=== PATIENT | female | born 1960 | race Caucasian/White ===

== ENCOUNTER 2017-10-23 23:42 | Emergency (ER) | payer MEDICAID, SELFPAY ==
[2017-10-23 23:47] VITALS: BP 157/104; PULSE 78; RESP 16; TEMP 36.4; O2SAT 97; BMI 26.9
--- NOTE | 2017-10-24 | CT_ITS ---
CT abdomen pelvis wo con CLINICAL INDICATION: Epigastric and right upper quadrant pain ITS.REASON: pain ORDERING PHYSICIAN: Mehdi Hogan MD PATIENT AGE: 57 years COMPARISON: 02/07/2014 TECHNIQUE: Axial images obtained with sagittal and coronal reformats. PROCEDURE: Oral Contrast: None IV Contrast: None . FINDINGS: Lung bases are clear. The liver, spleen, adrenal glands, pancreas, kidneys, ureters, and urinary bladder have an unremarkable appearance. Gallstones are present within a mildly distended gallbladder. No obvious biliary dilatation. Probable small splenule. Stomach is mildly distended with food and/or secretions. Unremarkable appendix. No intestinal obstruction or free air. No evidence of diverticulitis. There are few diverticula within the sigmoid colon. There are some minimally prominent fluid-filled loops of small bowel in the upper abdomen which are nonspecific. No air-fluid levels are evident within the small bowel. No pelvic mass or focal inflammatory change or abnormal fluid collection. Small umbilical hernia containing fat There is grade 1 spondylitic spondylolisthesis of L5 on S1 with degenerative disc disease at L4-5 and L5-S1. IMPRESSION: 1. Cholelithiasis with mildly distended gallbladder. 2. Mild distention of the stomach and proximal small bowel which is nonspecific. Repeat exam with IV and oral contrast may be of further value centimeters persist. No obvious transition point 3. Other nonacute findings as described above
[2017-10-24 00:19] LABS: Basophils # 0.1 K/mm3 (0-0.2); Basophils % 0.5 % (0.1-2.0); Eosinophils # 0.3 K/mm3 (0.0-0.4); Eosinophils % 2.3 % (0.1-12.0); Hematocrit 43.8 % (37.0-47.0); Hemoglobin 14.7 g/dL (12.2-16.2); Lymphocytes # 3.9 K/mm3 (0.7-4.5); Lymphocytes % 29.4 K/mm3 (10-50); Mean Corpuscular HGB Conc 33.6 g/dL (31.8-35.4); Mean Corpuscular Hemoglobin 29.2 pg (27.0-31.2); Mean Corpuscular Volume 87.1 fl (81-99); Mean Platelet Volume 7.7 fl (7.4-10.4); Monocytes # 0.7 K/mm3 (0.1-1.0); Monocytes % 5.4 % (1.7-9.3); Neutrophils # 8.3 K/mm3 (1.8-7.8); Neutrophils % 62.3 % (37.0-80.0); Platelet Count 293 K/mm3 (142-424); Red Blood Count 5.03 M/mm3 (4.20-5.40); Red Cell Distribution Width 12.6 % (11.5-17.5); White Blood Count 13.3 K/mm3 (4.8-10.8)
[2017-10-24 00:48] LABS: Alanine Aminotransferase 25 U/L (12-78); Albumin Level 4.1 gm/dL (3.4-5.0); Albumin/Globulin Ratio 1.1 (1.1-1.8); Alkaline Phosphatase 64 U/L (46-116); Amylase 50 U/L (25-125); Anion Gap 10.7 mEq/L (5-15); Aspartate Amino Transferase 15 U/L (15-37); Bilirubin,Total 0.3 mg/dL (0.2-1.0); Blood Urea Nitrogen 14 mg/dL (7-18); Calcium 8.9 mg/dL (8.5-10.1); Carbon Dioxide 28 mmol/L (21.0-32.0); Chloride 103 mmol/L (98-107); Creatinine Clearance Estimated 65 mL/min (0-300); Creatinine,Serum 1.05 mg/dL (0.55-1.02); Estimated Glomerular Filt Rate 54 ml/min (>60); GFR (African American) 66 ML/MIN (>60); Globulin 3.6 gm/dl (1.3-3.2); Glucose 146 mg/dL (74-106); Lipase 137 u/L (73-393); Potassium 3.7 mmoL/L (3.5-5.1); Sodium 138 mmol/L (136-145); Total Protein,Serum 7.7 gm/dL (6.4-8.2)
[2017-10-24 01:03] LABS: CKMB Relative Index 0.7 U/L (0-4.0); Creatine Kinase 103 U/L (26-192); Creatine Kinase MB 0.7 mg/ml (0.0-3.6); Troponin I < 0.02 ng/ml (0.00-0.06)
[2017-10-24 01:13] LABS: Microscopic, Urine URINE MICROSCOPIC (MICROSCOPIC)
[2017-10-24 01:15] LABS: Appearance,Urine CLEAR (Clear); Bilirubin,Urine Negative (Negative); Blood, Urine TRACE-I (Negative); Color,Urine YELLOW (Yellow); Glucose,Urine (UA) Negative (Negative); Ketones,Urine Negative (Negative); Leukocyte Esterase,Urine 1+ (Negative); Nitrate,Urine Negative (Negative); Protein,Urine Negative (Negative); Specific Gravity, Urine 1.025 (1.005-1.030); Urobilinogen,Urine 0.2 EU/dl (0.2)
[2017-10-24 01:23] LABS: Amorphous Sediment,Urine 1+ /lpf; Bacteria,Urine 1+ /lpf; Mucus,Urine 1+ /lpf
--- NOTE | 2017-10-24 01:27 | HMH.EDNVD ---
ED Disposition Clinical Impression: Cholelithiasis Qualifiers: Cholelithiasis location: gallbladder Cholecystitis presence: without cholecystitis Biliary obstruction: without biliary obstruction Qualified Code(s): K80.20 - Calculus of gallbladder without cholecystitis without obstruction Disposition: Home, Self-Care Condition on Discharge: Good Instructions: DI for Gallstones Additional Instructions: call pcp for follow up Prescriptions: Hydrocod/Acet 5/325 mg [[place] 5/325mg tablet] 1 tab PO Q6HP PRN #7 tab PRN Reason: Moderate To Severe Pain - Critical Care Critical Care Time: No Attestation: On 10/23/17, the high probability of a clinically significant, sudden or life threatening deterioration of the following system(s) required my full and direct attention, intervention and personal management. The time I documented below is in addition to time spent performing reported procedures but includes the following listed in this critical care notation. Medical Decision Making - Medical Records Medical records reviewed: Yes: I reviewed the patient's medical records. Vital Signs: 10/23/17 23:47 10/24/17 01:51 10/24/17 02:37 Temperature 97.6 F 97.7 F Temperature Source Oral Oral Pulse Rate [Left Radial] 78 91 H 69 Respiratory Rate 16 14 12 Blood Pressure [Right Arm] 157/104 171/81 134/63 Blood Pressure Mean [Right Arm] 121 111 86 Blood Pressure Source [Right Arm] Automatic Cuff Automatic Cuff Automatic Cuff Blood Pressure Position [Right Arm] Supine Sitting Sitting 02 Sat by Pulse Oximetry 97 94 L 97 Oxygen Delivery Method Room Air Room Air Room Air - Lab Data Lab results reviewed: Yes: I reviewed the patient's lab results. Lab Results 10/24/17 00:05: WBC 13.3 H, RBC 5.03, Hgb 14.7, Hct 43.8, MCV 87.1, MCH 29.2, MCHC 33.6, RDW 12.6, Plt Count 293, MPV 7.7, Neut % (Auto) 62.3, Lymph % (Auto) 29.4, [place] % (Auto) 5.4, Eos % (Auto) 2.3, Baso % (Auto) 0.5, Neut # (Auto) 8.3 H, Lymph # (Auto) 3.9, [place] # (Auto) 0.7, Eos # (Auto) 0.3, Baso # (Auto) 0.1 10/24/17 00:05: Sodium 138, Potassium 3.7, Chloride 103, Carbon Dioxide 28, Anion Gap 10.7, BUN 14, Creatinine 1.05 H, Estimated Creat Clear 65, Estimated GFR 54 L, Est GFR ( Amer) 66, Glucose 146 H, Calcium 8.9, Total Bilirubin 0.3, AST 15, ALT 25, Alkaline Phosphatase 64, Total Protein 7.7, Albumin 4.1, Globulin 3.6 H, Albumin/Globulin Ratio 1.1, Amylase 50, Lipase 137 10/24/17 00:05: Total Creatine Kinase 103, CK-MB (CK-2) 0.7, CK-MB (CK-2) Rel Index 0.7, Troponin I < 0.02 10/24/17 01:09: Urine Color Yellow, Urine Appearance Clear, Urine pH 6.0, Ur Specific [place] 1.025, Urine Protein Negative, Urine Glucose (UA) Negative, Urine Ketones Negative, Urine Blood Trace-i, Urine Nitrate Negative, Urine Bilirubin Negative, Urine Urobilinogen 0.2, Ur Leukocyte Esterase 1+ A, Urine RBC 3-5, Urine WBC 10-20, Ur Squamous Epith Cells 5-10, Amorphous Sediment 1+, Urine Bacteria 1+, Urine Mucus 1+ Result diagrams: 10/24/17 00:05 10/24/17 00:05 Orders (Tests/Meds): ED MEDICATIONS Discontinued Medications Generic Name Dose Route Start Last Admin Trade Name Freq PRN Reason Stop Dose Admin Hydrocodone Bitart/Acetaminophen 1 tab 10/24/17 02:28 10/24/17 02:32 [place] 5/325mg Tablet PO 10/24/17 02:29 1 tab ONCE ONE Administration Butorphanol Tartrate 1 mg 10/24/17 01:40 10/24/17 01:45 Stadol 1mg/1ml Vial IV 10/24/17 01:41 1 mg ONCE ONE Administration Sodium Chloride 1,000 mls @ 999 mls/hr 10/23/17 23:45 10/24/17 00:06 Sod Chlor 0.9% 1000ml Bag IV 10/24/17 00:45 999 mls/hr .Q1H1M YASSINE Administration Ketorolac Tromethamine 30 mg 10/24/17 00:01 10/24/17 00:06 Toradol 30mg/Ml Vial IV 10/24/17 00:02 30 mg ONCE ONE Administration Ondansetron HCl 4 mg 10/23/17 23:58 10/24/17 00:06 Zofran 4mg/2ml Vial IV 10/23/17 23:59 4 mg ONCE ONE Administration Promethazine HCl 12.5 mg 10/24/17 01:41 10/24/17 01:46 Phener
--- NOTE | 2017-10-24 01:34 | ED_ITS ---
ED Disposition Clinical Impression: Cholelithiasis Qualifiers: Cholelithiasis location: gallbladder Cholecystitis presence: without cholecystitis Biliary obstruction: without biliary obstruction Qualified Code(s) : K80.20 - Calculus of gallbladder without cholecystitis without obstruction Disposition: Home, Self-Care Condition on Discharge: Good Instructions: DI for Gallstones Additional Instructions: call pcp for follow up Prescriptions: Hydrocod/Acet 5/325 mg [[place] 5/325mg tablet] 1 tab PO Q6HP PRN #7 tab PRN Reason: Moderate To Severe Pain - Critical Care Critical Care Time: No Attestation: On 10/23/17, the high probability of a clinically significant, sudden or life threatening deterioration of the following system(s) required my full and direct attention, intervention and personal management. The time I documented below is in addition to time spent performing reported procedures but includes the following listed in this critical care notation. Medical Decision Making - Medical Records Medical records reviewed: Yes: I reviewed the patient's medical records. Vital Signs: 10/23/17 23:47 10/24/17 01:51 10/24/17 02:37 Temperature 97.6 F 97.7 F Temperature Source Oral Oral Pulse Rate [Left Radial] 78 91 H 69 Respiratory Rate 16 14 12 Blood Pressure [Right Arm] 157/104 171/81 134/63 Blood Pressure Mean [Right Arm] 121 111 86 Blood Pressure Source [Right Arm] Automatic Cuff Automatic Cuff Automatic Cuff Blood Pressure Position [Right Arm] Supine Sitting Sitting 02 Sat by Pulse Oximetry 97 94 L 97 Oxygen Delivery Method Room Air Room Air Room Air - Lab Data Lab results reviewed: Yes: I reviewed the patient's lab results. Lab Results 10/24/17 00:05: WBC 13.3 H, RBC 5.03, Hgb 14.7, Hct 43.8, MCV 87.1, MCH 29.2, MCHC 33.6, RDW 12.6, Plt Count 293, MPV 7.7, Neut % (Auto) 62.3, Lymph % (Auto) 29.4, [place] % (Auto) 5.4, Eos % (Auto) 2.3, Baso % (Auto) 0.5, Neut # (Auto) 8.3 H, Lymph # (Auto) 3.9, [place] # (Auto) 0.7, Eos # (Auto) 0.3, Baso # (Auto) 0.1 10/24/17 00:05: Sodium 138, Potassium 3.7, Chloride 103, Carbon Dioxide 28, Anion Gap 10.7, BUN 14, Creatinine 1.05 H, Estimated Creat Clear 65, Estimated GFR 54 L, Est GFR ( Amer) 66, Glucose 146 H, Calcium 8.9, Total Bilirubin 0.3, AST 15, ALT 25, Alkaline Phosphatase 64, Total Protein 7.7, Albumin 4.1, Globulin 3.6 H, Albumin/Globulin Ratio 1.1, Amylase 50, Lipase 137 10/24/17 00:05: Total Creatine Kinase 103, CK-MB (CK-2) 0.7, CK-MB (CK-2) Rel Index 0.7, Troponin I < 0.02 10/24/17 01:09: Urine Color Yellow, Urine Appearance Clear, Urine pH 6.0, Ur Specific [place] 1.025, Urine Protein Negative, Urine Glucose (UA) Negative, Urine Ketones Negative, Urine Blood Trace-i, Urine Nitrate Negative, Urine Bilirubin Negative, Urine Urobilinogen 0.2, Ur Leukocyte Esterase 1+ A, Urine RBC 3-5, Urine WBC 10-20, Ur Squamous Epith Cells 5-10, Amorphous Sediment 1+, Urine Bacteria 1+, Urine Mucus 1+ Result diagrams: 10/24/17 00:05 10/24/17 00:05 Orders (Tests/Meds): ED MEDICATIONS Discontinued Medications Generic Name Dose Route Start Last Admin Trade Name Curlyq PRN Reason Stop Dose Admin Hydrocodone Bitart/Acetaminophen 1 tab 10/24/17 02:28 10/24/17 02:32 [place] 5/325mg Tablet PO 10/24/17 02:29 1 tab ONCE ONE Administration Butorphanol Tartrate 1 mg 10/24/17 01:40 10/24/17 01:45 Stadol 1mg/1ml Vial IV 10/24/17 01:41 1 mg O
[2017-10-24 01:51] VITALS: BP 171/81; PULSE 91; RESP 14; O2SAT 94
[2017-10-24 02:37] VITALS: BP 134/63; PULSE 69; RESP 12; TEMP 36.5; O2SAT 97
[2017-10-24 02:40] VITALS: BP 134/63; PULSE 69; RESP 12; TEMP 36.5; O2SAT 97
== END 2017-10-24 02:48 | disposition home or self-care (01) ==
PROVIDERS: Emergency Provider Emergency Medicine; Family Provider Internal Medicine Adolescent Medicine
DX: K80.20 Calculus of gallbladder without cholecystitis without obstruction (principal); F17.210 Nicotine dependence, cigarettes, uncomplicated
CPT/HCPCS: 74176; 80053; 81001; 82150; 82550; 82553; 83690; 84484; 85025; 87086; 93005; 93041; 96365; 96374; 96375; 99284; J0595; J2405

== ENCOUNTER 2019-01-05 03:48 | Inpatient (IN) | payer MEDICAID, SELFPAY ==
[2019-01-05] VITALS (30 sets, daily range): BP systolic 107–166; BP diastolic 55–103; PULSE 59–95; RESP 15–20; TEMP 36.3–36.8; O2SAT 7–100; BMI 29.2; BMI 29.7
--- NOTE | 2019-01-05 03:54 | XR_ITS ---
XR chest portable HISTORY: ITS.REASON: chest pain ORDERING PHYSICIAN: Bryan Pitts MD PATIENT AGE: 58 years COMPARISON: PA and lateral chest 08/06/2017 FINDINGS: The cardiomediastinal silhouette and pulmonary vascularity are within normal limits. The lungs are clear without infiltrates, suspicious nodules, or pleural effusions. No acute bony abnormalities. IMPRESSION: Negative chest, no acute finding
--- NOTE | 2019-01-05 04:04 | HMH.EDGENADL ---
ED Disposition Condition on Discharge: Serious - Critical Care Critical Care Time: Yes Total Critical Care Time: 40 Vital system(s) involved:: Circulatory Failure My critical care processes included: Assessment & monitoring of V/S, Initial and Re-exams, Data Review/Interpretation, Coordinating Care, Medication Orders and management, Documentation <Bryan Pitts - Last Filed: 01/05/19 07:55> Condition on Discharge: Serious Time of Disposition: 09:11 <Mehdi Walton - Last Filed: 01/05/19 09:22> Clinical Impression: Non-STEMI (non-ST elevated myocardial infarction), Cocaine use, Substance abuse Disposition: Still a Patient Referrals: Provider,Referral, MD [Primary Care Provider] - Attestation: On 01/05/19, the high probability of a clinically significant, sudden or life threatening deterioration of the following system(s) required my full and direct attention, intervention and personal management. The time I documented below is in addition to time spent performing reported procedures but includes the following listed in this critical care notation. Medical Decision Making - Sadiq Inquiry Pt receiving controlled substance: Yes Sadiq was queried for this patient: No Reason not queried -: Emergent pt cond-no time Risks and benefits of using a controlled substance: were not discussed with pt by me - Lab Data Result diagrams: 01/05/19 04:00 01/05/19 04:00 - Radiology Data #1 Image(s): Chest Image Reviewed: Yes I reviewed the patient's radiology image Preliminary Findings: Normal/NAD - CT Data CT Scan: Chest Time Received: 06:[address] Reviewed: Yes: I have viewed the radiologist's interpretation - Physician Consults Physician Consulted: Bharti Time: 07:50 Reason -: Cardiology Eval/Care Comment/Response: Requests nitro drip, heparin bolus and drip, Ativan. Call him back after 30 minutes. If she is not pain-free he will then take to the [facility]. Additional Consult: Danyelle Time: 08:00 Reason -: Admission Comment/Response: Agrees to admit the patient to the hospital. We discussed the patient's clinical information, including history, exam, laboratory and radiology results and ED course. Per hospital procedure, I will write temporary bridge inpatient orders on the patient. Specific orders requested by the admitting physician: Per cardiology - Reevaluation(s) Time: 04:48 <Bryan Pitts - Last Filed: 01/05/19 07:55> - Lab Data Result diagrams: 01/05/19 04:00 01/05/19 04:00 - ERENDIRA Score for Non-Stemi Age of Patient: 50-59 years old Heart Rate: 70-89 bpm Systolic Blood Pressure: 160-199 mmHg Serum Creatinine: 0.80-1.19 mg/dl CHF [place] Class: I-No CHF Other Risk Factors: Elevated Cardiac Enzymes or Biomarkers Non-Stemi Risk Score: 81 <Mehdi Walton - Last Filed: 01/05/19 09:22> Vital Signs: 01/05/19 03:49 01/05/19 03:59 01/05/19 04:50 Temperature 97.4 F L Temperature Source Oral Pulse Rate [Right Radial] 72 74 Respiratory Rate 20 18 Blood Pressure [Right Arm] 164/103 H 129/76 Blood Pressure Mean [Right Arm] 123 93 Blood Pressure Source [Right Arm] Blood Pressure Position [Right Arm] 02 Sat by Pulse Oximetry 100 100 100 Oxygen Delivery Method Nasal Cannula Oxygen Flow Rate (LPM) 2 01/05/19 05:50 01/05/19 07:48 01/05/19 08:30 Temperature Temperature Source Pulse Rate [Right Radial] 79 68 67 Respiratory Rate 18 Blood Pressure [Right Arm] 107/70 L 156/100 H 154/78 H Blood Pressure Mean [Right Arm] 82 118 103 Blood Pressure Source [Right Arm] Automatic Cuff Automatic Cuff Blood Pressure Position [Right Arm] Sitting Sitting 02 Sat by Pulse Oximetry 100 98 Oxygen Delivery Method Room Air Oxygen Flow Rate (LPM) 01/05/19 08:35 01/05/19 08:40 01/05/19 08:45 Temperature Temperature Source Pulse Rate [Right Radial] 68 63 61 Respiratory Rate Blood Pressure [Right Arm] 139/95 H 125/92 H 118/80 Blood Pressure Mean [Right Arm]
--- NOTE | 2019-01-05 04:07 | PC.NURSE ---
patient states no relief from nitro given. dr snyder notified and is at bedside for eval at this time. pt still c/o 06/05 pain.
[2019-01-05 04:15] LABS: Basophils # 0.1 K/mm3 (0-0.2); Basophils % 0.6 % (0.1-2.0); Eosinophils # 0.3 K/mm3 (0.0-0.4); Eosinophils % 2.8 % (0.1-12.0); Hematocrit 46.7 % (37.0-47.0); Hemoglobin 15.2 g/dL (12.2-16.2); Lymphocytes # 3.6 K/mm3 (0.7-4.5); Mean Corpuscular HGB Conc 32.5 g/dL (31.8-35.4); Mean Corpuscular Hemoglobin 28.5 pg (27.0-31.2); Mean Corpuscular Volume 87.8 fl (81-99); Mean Platelet Volume 7.4 fl (7.4-10.4); Monocytes # 0.6 K/mm3 (0.1-1.0); Monocytes % 6.1 % (1.7-9.3); Neutrophils # 5.7 K/mm3 (1.8-7.8); Neutrophils % 55.5 % (37.0-80.0); Platelet Count 328 K/mm3 (142-424); Red Blood Count 5.32 M/mm3 (4.20-5.40); Red Cell Distribution Width 12.8 % (11.5-17.5); White Blood Count 10.2 K/mm3 (4.8-10.8)
[2019-01-05 04:31] LABS: Anion Gap 12.8 mEq/L (5-15); Blood Urea Nitrogen 14 mg/dL (7-18); Carbon Dioxide 28 mmol/L (21.0-32.0); Chloride 103 mmol/L (98-107); Creatinine Clearance Estimated 69 mL/min (50-200); Creatinine,Serum 1.09 mg/dL (0.55-1.02); Estimated Glomerular Filt Rate 52 ml/min (>60); GFR (African American) 63 ML/MIN (>60); Glucose 158 mg/dL (74-106); Potassium 3.8 mmoL/L (3.5-5.1); Sodium 140 mmol/L (136-145); Troponin I < 0.02 ng/ml (0.00-0.06)
[2019-01-05 04:44] LABS: D-Dimer < 100 ng/mL (0-400)
--- NOTE | 2019-01-05 04:54 | CT_ITS ---
CT angio chest COMPARISON: PA and lateral chest 08/06/2017 HISTORY: Chest pain, clinical suspicion of possible aortic dissection TECHNIQUE: Multiple axial scans obtained from the thoracic inlet the hemidiaphragms after rapid injection of 100 mL of Omnipaque 350. Sagittal coronal reformats were evaluated as well. FINDINGS: There is excellent vascular opacification and is no CT evidence of pulmonary emboli. There is no evidence of aortic dissection. Cardiac size is normal and the vascularity is normal. There is minimal discoid atelectasis in the lingula and bilateral lung bases. There is no definite pneumonic infiltrate and is no pleural fluid. There are mild degenerative changes middle lower thoracic spine. IMPRESSION: No evidence of pulmonary embolism or aortic dissection from a minimal bilateral atelectasis as noted, agree the [facility] report
[2019-01-05 05:24] LABS: Amphetamine/Metha Screen,Urine Negative ng/mL (<1000); Barbiturates Screen,Urine Negative ng/mL (<200); Benzodiazepines Screen,Urine Negative ng/mL (<200); Cannabinoid Screen,Urine Positive ng/mL (<50); Cocaine Screen,Urine Positive ng/mL (<300); Methadone Screen,Urine Negative ng/mL (<300); Opiate Screen,Urine Positive ng/mL (<300); Phencyclidine Screen,Urine Negative ng/mL (<25)
--- NOTE | 2019-01-05 07:05 | PC.NURSE ---
repeat troponin drawn and to lab for resulting by alina funez rn
[2019-01-05 07:42] LABS: Troponin I 2.69 ng/ml (0.00-0.06)
--- NOTE | 2019-01-05 07:43 | PC.NURSE ---
speaking with Dr Hay
--- NOTE | 2019-01-05 07:58 | PC.NURSE ---
returned call from dr frank
--- NOTE | 2019-01-05 08:07 | PC.NURSE ---
spoke with Inge in pharmacy r/t Heparin bolus and drip dosing for pt. Stated pt would need at Heparin 4,000 units bolus and Heparin drip would be 1,000 units/hr inge stated she would enter these medications in the system
--- NOTE | 2019-01-05 08:10 | PC.NURSE ---
ER at discussing POC and test results with pt
[2019-01-05 08:20] LABS: Activated Partial Thrombo Time 25.6 seconds (23.6-34.0); INR 0.94 (0.9-1.1); Prothrombin Time 9.8 seconds (9.4-11.8)
--- NOTE | 2019-01-05 08:38 | PC.NURSE ---
verified Heparin drip dosing with Inge in pharmacy r/t order only has 20ml/hr and not the units per hour. Inge stated it is 1000 units per hour with a rate of 20ml/hr
--- NOTE | 2019-01-05 09:01 | PC.NURSE ---
glazing machine operator paging Dr. clayton
--- NOTE | 2019-01-05 09:04 | PC.NURSE ---
speaking to forrest
--- NOTE | 2019-01-05 09:04 | PC.NURSE ---
table operator paging Dr. Bassett who is on for service pts
--- NOTE | 2019-01-05 09:06 | PC.NURSE ---
DEN BURROUGHS speaking with Dr. Bassett
--- NOTE | 2019-01-05 09:11 | PC.NURSE ---
pt resting no c/o at present
--- NOTE | 2019-01-05 09:40 | PC.NURSE ---
dr frank at bedside
--- NOTE | 2019-01-05 09:43 | PC.NURSE ---
Dr. Bassett at
--- NOTE | 2019-01-05 09:51 | HMH.HP ---
*Admission Date: 01/05/19 *Chief complaint: Chest pain *History of present illness: 58 year year old female patient of Dr. Dino Eason in [place], [place], presented to [facility] ER this morning complaining of chest pain. Pt reports she was awoken from sleep at 2:30 am with severe anterior chest pain that radiated to her right arm. She also reported profuse sweating. She states she smoked a marijuana cigarette laced with cocaine about 24 hours prior to her pain. She has no history of heart disease but does have hyperlipidemia and hypertension but does not take medication for these conditions. 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 [facility] History Medical History: Reports:: Cancer (vaginal cancer as a child), Gall Bladder Disease, Hyperlipidemia, Hypertension Denies:: Diabetes Mellitus Type 1, Diabetes Mellitus Type 2, MRSA *Have you ever received a pneumonia vaccine?: No *Have you received a flu vaccine this season?: No Other Medical History: Reports: Other (Chronic back pain) Other Surgeries: Yes: Cholecystectomy, Tubal Ligation, Other (Bladder surgery (unknown type)) Amputation: No Fractures: No - *Social History Smoking Status: Current every day smoker Tobacco Type: cigarettes # Packs/Day (cigarettes): 1 Alcohol Intake: never Substance Use Type: marijuana, crack/cocaine, opiates Last Used Substance: hours (ago) (24) *Occupational Status:: employed *Travel in the last 8 weeks: None - Psychiatric History Expresses thoughts of harming self/others: None Suicide Plan Description: No Plan Family Hx:: No significant family history Review of Systems - Constitutional Denies fatigue - Eyes Denies blurry vision - ENT Denies bleeding gums - *Respiratory Denies cough - *Gastrointestinal Denies abdominal pain - *Genitourinary Denies abnormal vaginal bleeding - *Musculoskeletal Denies decreased muscle mass - Integumentary/Breasts Denies rash - *Neurologic Denies dizziness - Psychiatric Denies depression - Hematologic/Lymphatic Denies easy bruising Meds Home Medications Medication Instructions Recorded Confirmed Type Meloxicam 7.5 mg PO DAILYP PRN 01/05/19 01/05/19 History Allergies Allergy/AdvReac Type Severity Reaction Status Date / Time No Known Allergies Allergy Verified 01/05/19 03:55 Exam Vital signs and Labs for Last 24 Hours: Temp Pulse Resp BP Pulse Ox 97.4 F L 62 18 114/78 98 01/05/19 03:49 01/05/19 09:30 01/05/19 05:50 01/05/19 09:30 01/05/19 08:35 Laboratory Results - last 24 hr 01/05/19 04:00: WBC 10.2, RBC 5.32, Hgb 15.2, Hct 46.7, MCV 87.8, MCH 28.5, MCHC 32.5, RDW 12.8, Plt Count 328, MPV 7.4, Neut % (Auto) 55.5, Lymph % (Auto) 35.0, [place] % (Auto) 6.1, Eos % (Auto) 2.8, Baso % (Auto) 0.6, Neut # (Auto) 5.7, Lymph # (Auto) 3.6, [place] # (Auto) 0.6, Eos # (Auto) 0.3, Baso # (Auto) 0.1 01/05/19 04:00: Sodium 140, Potassium 3.8, Chloride 103, Carbon Dioxide 28, Anion Gap 12.8, BUN 14, Creatinine 1.09 H, Estimated Creat Clear 69, Estimated GFR 52 L, Est GFR ( Amer) 63, Glucose 158 H, Calcium 9.0, Troponin I < 0.02 01/05/19 04:00: D-Dimer < 100 01/05/19 04:00: PT 9.8, INR 0.94, APTT 25.6 01/05/19 05:10: Urine Opiates Screen Positive H, Urine Methadone Screen Negative, Ur Barbituates Screen Negative, Ur Phencyclidine Scrn Negative, Ur Amphetamines Screen Negative, U Benzodiazepines Scrn Negative, Urine Cocaine Screen Positive H, U Marijuana (THC) Screen Positive H 01/05/19 07:05: Troponin I 2.69 H Vital Signs - 24 hr 01/05/19 03:49 01/05/19 03:59 01/05/19 04:50 Temperature 97.4 F L Pulse Rate [Right Radial] 72 74 Respiratory Rate 20 18 Blood Pressure [Right Arm] 164/103 H 129/76 02 Sat by Pulse Oximetry 100 100 100 01/05/19 05:50 01/05/19 07:48 01/05/19 08:30 Temperature Pulse Rate [Right Radial] 79 68 67 Respiratory Rate 18 Blood Pressure [Right Arm] 107/70 L 156/100 H 154/78 H 02 Sa
--- NOTE | 2019-01-05 09:53 | PC.NURSE ---
report called to koby valencia
--- NOTE | 2019-01-05 09:57 | P.HP_ITS ---
*Admission Date: 01/05/19 *Chief complaint: Chest pain *History of present illness: 58 year year old female patient of Dr. Dino Eason in [place], [place], presented to [facility] ER this morning complaining of chest pain. Pt reports she was awoken from sleep at 2:30 am with severe anterior chest pain that radiated to her right arm. She also reported profuse sweating. She states she smoked a marijuana cigarette laced with cocaine about 24 hours prior to her pain. She has no history of heart disease but does have hyperlipidemia and hypertension but does not take medication for these conditions. 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 [facility] History Medical History: Reports:: Cancer (vaginal cancer as a child), Gall Bladder Disease, Hyperlipidemia, Hypertension Denies:: Diabetes Mellitus Type 1, Diabetes Mellitus Type 2, MRSA *Have you ever received a pneumonia vaccine?: No *Have you received a flu vaccine this season?: No Other Medical History: Reports: Other (Chronic back pain) Other Surgeries: Yes: Cholecystectomy, Tubal Ligation, Other (Bladder surgery (unknown type)) Amputation: No Fractures: No - *Social History Smoking Status: Current every day smoker Tobacco Type: cigarettes # Packs/Day (cigarettes): 1 Alcohol Intake: never Substance Use Type: marijuana, crack/cocaine, opiates Last Used Substance: hours (ago) (24) *Occupational Status:: employed *Travel in the last 8 weeks: None - Psychiatric History Expresses thoughts of harming self/others: None Suicide Plan Description: No Plan Family Hx:: No significant family history Review of Systems - Constitutional Denies fatigue - Eyes Denies blurry vision - ENT Denies bleeding gums - *Respiratory Denies cough - *Gastrointestinal Denies abdominal pain - *Genitourinary Denies abnormal vaginal bleeding - *Musculoskeletal Denies decreased muscle mass - Integumentary/Breasts Denies rash - *Neurologic Denies dizziness - Psychiatric Denies depression - Hematologic/Lymphatic Denies easy bruising Meds Home Medications Medication Instructions Recorded Confirmed Type Meloxicam 7.5 mg PO DAILYP PRN 01/05/19 01/05/19 History Allergies Allergy/AdvReac Type Severity Reaction Status Date / Time No Known Allergies Allergy Verified 01/05/19 03:55 Exam Vital signs and Labs for Last 24 Hours: Temp Pulse Resp BP Pulse Ox 97.4 F L 62 18 114/78 98 01/05/19 03:49 01/05/19 09:30 01/05/19 05:50 01/05/19 09:30 01/05/19 08:35 Laboratory Results - last 24 hr 01/05/19 04:00: WBC 10.2, RBC 5.32, Hgb 15.2, Hct 46.7, MCV 87.8, MCH 28.5, MCHC 32.5, RDW 12.8, Plt Count 328, MPV 7.4, Neut % (Auto) 55.5, Lymph % (Auto) 35.0, [place] % (Auto) 6.1, Eos % (Auto) 2.8, Baso % (Auto) 0.6, Neut # (Auto) 5.7, Lymph # (Auto) 3.6, [place] # (Auto) 0.6, Eos # (Auto) 0.3, Baso # (Auto) 0.1 01/05/19 04:00: Sodium 140, Potassium 3.8, Chloride 103, Carbon Dioxide 28, Anion Gap 12.8, BUN 14, Creatinine 1.09 H, Estimated Creat Clear 69, Estimated GFR 52 L, Est GFR ( Amer) 63, Glucose 158 H, Calcium 9.0, Troponin I < 0. 02 01/05/19 04:00: D-Dimer < 100 01/05/19 04:00: PT 9.8, INR 0.94, APTT 25.6 01/05/19 05:10: Urine Opiates Screen Positive H, Urine Methadone Screen Negative, Ur Barbituates Scre
--- NOTE | 2019-01-05 10:29 | HMH.PHAVTE ---
[facility] VTE Monitoring - Patient Demographics Admission date: 01/05/19 Report Date: 01/05/19 Time: 10:29 Allergies/Adverse Reactions: Patient Allergies No Known Allergies Allergy (Verified 01/05/19 03:55) Height: 1.63 m Weight: 77.111 kg Patient Problems: Current Active Problems (Updated 01/05/19 @ 10:10 by Phillip Bassett MD) Non-STEMI (non-ST elevated myocardial infarction) (Acute) Cocaine use (Acute) Hyperlipidemia (Acute) Hypertension (Acute) Cigarette nicotine dependence, uncomplicated (Acute) Polysubstance abuse (Acute) - VTE Risk Labs: VTE Related Lab Results Hgb 15.2 g/dL (12.2-16.2) 01/05/19 04:00 Hct 46.7 % (37.0-47.0) 01/05/19 04:00 Plt Count 328 K/mm3 (142-424) 01/05/19 04:00 PT 9.8 seconds (9.4-11.8) 01/05/19 04:00 INR 0.94 (0.9-1.1) 01/05/19 04:00 APTT 25.6 seconds (23.6-34.0) 01/05/19 04:00 BUN 14 mg/dL (7-18) 01/05/19 04:00 Creatinine 1.09 mg/dL (0.55-1.02) H 01/05/19 04:00 Estimated Creat Clear 69 mL/min (50-200) 01/05/19 04:00 - Prophylaxis VTE Prophylaxis Ordered?: Yes Types of VTE Prophylaxis: Pharmacological Pharmacologic Type: Heparin
--- NOTE | 2019-01-05 10:30 | HMH.PHAHEP ---
[facility] Pharmacy Heparin Dosing - Demographic Data Admission date:: 01/05/19 Date: 01/05/19 Time: 10:30 Allergies/Adverse Reactions: Allergies Allergy/AdvReac Type Severity Reaction Status Date / Time No Known Allergies Allergy Verified 01/05/19 03:55 Height: 1.63 m Weight: 77 kg - Indication Medication therapy:: Heparin Current Indications:: NSTEMI Patient Problems: Current Active Problems (Updated 01/07/19 @ 07:46 by CARMENZA Bartlett) Non-STEMI (non-ST elevated myocardial infarction) (Acute) Cocaine use (Acute) Hyperlipidemia (Acute) Hypertension (Acute) Cigarette nicotine dependence, uncomplicated (Acute) Polysubstance abuse (Acute) Substance abuse (Acute) Ischemic cardiomyopathy (Acute) CVA?: No Bleeding problem?: No Kidney disease?: No UT?: Yes Desired PTT range:: 60-80 seconds - Labs Anticoagulation Lab Results:: 01/05/19 04:00 Hgb 15.2 Hct 46.7 Plt Count 328 - Monitoring Dose Monitor 1 Date: 01/05/19 Time: 04:00 PTT Result:: 25.6 Infusion Rate:: 1000 UNITS/HR = 20 ML/HR HEPARIN 4000 UNITS BOLUS GIVEN Comment:: BASELINE PTT [id number] Dose Monitor 2 Date: 01/05/19 Time: 15:59 PTT Result:: 38.9 Infusion Rate:: 23 ML/HR 4000 UNIT BOLUS Dose Monitor 3 Date: 01/05/19 Time: 23:59 PTT Result:: 52.0 Infusion Rate:: 25 ML/HR Dose Monitor 4 Date: 01/06/19 Time: 05:00 PTT Result:: 54.0 Infusion Rate:: 27 ML/HR - Core Measures Is INR > or = 2 at discharge?: No Most Recent Labs:: Laboratory Results - last 24 hr 01/05/19 04:00: WBC 10.2, RBC 5.32, Hgb 15.2, Hct 46.7, MCV 87.8, MCH 28.5, MCHC 32.5, RDW 12.8, Plt Count 328, MPV 7.4, Neut % (Auto) 55.5, Lymph % (Auto) 35.0, [place] % (Auto) 6.1, Eos % (Auto) 2.8, Baso % (Auto) 0.6, Neut # (Auto) 5.7, Lymph # (Auto) 3.6, [place] # (Auto) 0.6, Eos # (Auto) 0.3, Baso # (Auto) 0.1 01/05/19 04:00: Sodium 140, Potassium 3.8, Chloride 103, Carbon Dioxide 28, Anion Gap 12.8, BUN 14, Creatinine 1.09 H, Estimated Creat Clear 69, Estimated GFR 52 L, Est GFR ( Amer) 63, Glucose 158 H, Calcium 9.0, Troponin I < 0.02 01/05/19 04:00: D-Dimer < 100 01/05/19 04:00: PT 9.8, INR 0.94, APTT 25.6 01/05/19 05:10: Urine Opiates Screen Positive H, Urine Methadone Screen Negative, Ur Barbituates Screen Negative, Ur Phencyclidine Scrn Negative, Ur Amphetamines Screen Negative, U Benzodiazepines Scrn Negative, Urine Cocaine Screen Positive H, U Marijuana (THC) Screen Positive H 01/05/19 07:05: Troponin I 2.69 H If INR was < than 2.0 why was therapy stopped?: ON HEPARIN FOR NSTEMI..TAKEN TO [employer] Were Heparin and Warfarin started on the same day?: No If not, why?: NOT INDICATED AFTER [facility] [employer] [employer] [facility]
--- NOTE | 2019-01-05 10:54 | PC.NURSE ---
STATES ONLY SMOKES 5-6 CIGARETTES
[2019-01-05 11:06] LABS: Troponin I 11.08 ng/ml (0.00-0.06)
--- NOTE | 2019-01-05 11:14 | PC.NURSE ---
CALLED WITH 3RD TROPONIN RESULT OF 11.08. STATED OKAY TO CANCEL ANY REMAINING TROPNIN DRAWS AT THIS TIME
[2019-01-05 15:29] LABS: Activated Partial Thrombo Time 38.9 seconds (23.6-34.0)
--- NOTE | 2019-01-05 16:38 | PC.NURSE ---
PHARMACY CALLED STATING PATIENT PTT IS TOO LOW. ORDERED TO GIVE A 4000 UNIT BOLUS OF HEPARIN IV AND THEN TO TURN INSULIN DRIP UP TO 23ML/HR
--- NOTE | 2019-01-05 18:17 | PC.NURSE ---
patient has done well this shift. she has had no complaints of chest pain. does report a little shortness of breath so nasal cannula placed on patient at 2l. she has had a good appetite. has rang out as needed. some help to bathroom because of iv poles. her vitals have been stable. will continue to monitor.
--- NOTE | 2019-01-05 20:52 | PC.NURSE ---
She is A&Ox4. She is resting in bed. Denies nausea or weakness. States she had some SOA on previous shift but not since she was placed on 2LPM n/c. She was educated on brilinta and SOA; verbalizes understanding. Denies chest pain. Posterior lung sounds with expiratory rhonchi t/o. She continues on nitro and heparin gtt.
[2019-01-06] VITALS (30 sets, daily range): BP systolic 104–150; BP diastolic 69–95; PULSE 56–96; RESP 14–24; TEMP 36.7–36.9; O2SAT 93–99; BMI 30.2
--- NOTE | 2019-01-06 | IR_ITS ---
CARDIAC CATHETERIZATION DATE OF CATHETERIZATION:01/06/2019 11:30 AM PROCEDURES: 1. Left heart catheterization 2. Left ventriculogram 3. Selective coronary angiogram 4. Drug-eluting stent deployment from the proximal through the mid LAD INDICATION FOR TEST: 1. Coronary artery disease 2. Non-ST elevation myocardial infarction troponin greater than 11 Informed consent was obtained prior to the procedure. COMPLICATIONS: None ESTIMATED BLOOD LOSS: Less than 10 ml. TECHNIQUE: One percent lidocaine used to anesthetize the right anterior aspect of the wrist. The right radial artery was accessed via the Seldinger technique. A 6 British sheath was placed in the right radial artery. 2.5 mg of verapamil, 800 mcg of nitroglycerin, 1mg Lidocaine were given through the arterial sheath. The trap catheter was also used to perform left heart catheterization, left ventriculogram and selective coronary angiogram. At the end of the diagnostic angiogram 8000 units of heparin was administered intravenously producing an ACT greater than 300. An [employer] left guide catheter was used intubate the left main artery and a BMW wire was placed distally. A 2.5 x 38 mm resolute [place] stent was deployed at 20 sonia reducing the severe stenosis. A 3 mm x 12 mm noncompliant balloon was deployed at 24 sonia in the ostium of the stent and 20 sonia in the proximal portion of post dilate. Excellent angiographic results were obtained with NICOLE-3 flow before and after the procedure. At the end of the procedure the apparatus was removed the sheath was removed good hemostasis was achieved using TR banding patient transferred the postop holding area in stable condition ANGIOGRAPHIC RESULTS: 1. The left main artery normal 2. The left anterior descending artery has proximal concentric 80% stenosis followed by additional 80% mid vessel stenoses. 3. The circumflex artery is a large dominant vessel free of disease. 4. The ramus intermedius has a proximal to mid vessel 60% stenosis. This is a 2 mm to 2.5 mm vessel 5. The right coronary artery small vestigial and normal 6. The KANG ventriculogram reveals preserved at 55% with mild anterior wall hypokinesis 7. The left ventricular end-diastolic pressure 20 mmHg IMPRESSION: 1. Severe proximal to mid LAD disease 2. Successful stenting of the proximal to mid LAD severe disease reduced to 0% with 1 drug-eluting stent 3. Persistent moderate stenosis and a moderate sized 2 mm to 2.25 mm ramus intermedius 4. Preserved ejection fraction with mild regional wall motion abnormality 5. Mildly elevated LVEDP PLAN: 1. Brilinta and aspirin for one year 2. LDL less than 55 3. Avoidance of illegal polysubstance narcotic abuse/usage 4. Cardiac rehabilitation 5. John inhibitors beta blockers 6. Medical management for the ramus intermedius. It may be reasonable to perform a Lexiscan Myoview in 6 weeks to determine if this lesion is producing ischemia. The vessel could potentially be stented however I would prefer medical management unless this is producing angina or becomes severely ischemic myocardial
--- NOTE | 2019-01-06 05:01 | PC.NURSE ---
S CALL RN, NOTIFIED OF RUN NOTED ON DEPUTY CLERK. STRIP OBTAINED. WILL PLACE ON CHART FOR MD TO REVIEW.
[2019-01-06 05:17] LABS: Basophils # 0.1 K/mm3 (0-0.2); Basophils % 0.4 % (0.1-2.0); Eosinophils # 0.4 K/mm3 (0.0-0.4); Eosinophils % 3.4 % (0.1-12.0); Hematocrit 40.2 % (37.0-47.0); Hemoglobin 13.1 g/dL (12.2-16.2); Lymphocytes # 4.5 K/mm3 (0.7-4.5); Lymphocytes % 42.9 % (10-50); Mean Corpuscular HGB Conc 32.6 g/dL (31.8-35.4); Mean Corpuscular Hemoglobin 29.4 pg (27.0-31.2); Mean Corpuscular Volume 90.2 fl (81-99); Mean Platelet Volume 7.7 fl (7.4-10.4); Monocytes # 0.6 K/mm3 (0.1-1.0); Monocytes % 5.7 % (1.7-9.3); Neutrophils # 4.9 K/mm3 (1.8-7.8); Neutrophils % 47.6 % (37.0-80.0); Platelet Count 241 K/mm3 (142-424); Red Blood Count 4.46 M/mm3 (4.20-5.40); Red Cell Distribution Width 12.9 % (11.5-17.5); White Blood Count 10.4 K/mm3 (4.8-10.8)
[2019-01-06 05:30] LABS: Anion Gap 14.2 mEq/L (5-15); Blood Urea Nitrogen 14 mg/dL (7-18); Calcium 8.2 mg/dL (8.5-10.1); Carbon Dioxide 26 mmol/L (21.0-32.0); Chloride 106 mmol/L (98-107); Chol/HDL Ratio 5.2 (1-3.5); Cholesterol 233 mg/dL (140-200); Creatinine Clearance Estimated 66 mL/min (50-200); Creatinine,Serum 1.18 mg/dL (0.55-1.02); Estimated Glomerular Filt Rate 47 ml/min (>60); GFR (African American) 57 ML/MIN (>60); Glucose 123 mg/dL (74-106); HDL Cholesterol 45 mg/dL (29-89); LDL Cholesterol 144 mg/dL (0-130); Potassium 4.2 mmoL/L (3.5-5.1); Sodium 142 mmol/L (136-145); Triglycerides 221 mg/dL (30-200); VLDL Cholesterol 44 mg/dL (0-40)
--- NOTE | 2019-01-06 06:26 | PC.NURSE ---
Late entry: @ [id number], notified of consult for Dr. Hay
--- NOTE | 2019-01-06 07:44 | HMH.PHAINT ---
MEDICATION RECONCILIATION COMPLETED ON PATIENT USING EXTERNAL FILL HISTORY FROM PHARMACY. -YELITZA FALCON, DAVISD
--- NOTE | 2019-01-06 07:54 | CA_ITS ---
PROCEDURE: 2-D M-mode and color Doppler study INDICATIONS FOR THE TEST: Chest pain + COPD Heart Murmur Tobacco Smoking+ Palpitations Fatigue Syncope Edema Hypertension+Diabetes Mellitus Rheumatic Fever SOB VARGAS Obesity Hyperlipidemia+ Family History HD Additional History PATIENT INFORMATION HEIGHT: 64 WEIGHT:176 GENDER: Female B/P:114/78 2-D/M-MODE INTERPRETATION: 2-D MEASUREMENTS OBSERVED VALUES IN CMS Right Ventricular Dimension (RVDd) 1.4 Interventricular Septum (Thickness)(IVsd) 0.9 Left Ventricular Internal Dimensions(LVIDd) 5.9 Left Ventricular Posterior Wall (Thickness)(LVPWd) 0.7 Aortic Root 2.6 Aortic Cusp Separation 1.7 Left Atrial Dimensions (LAD) 3.4 2D 1. Left atrium is mildly enlarged, left ventricle is mildly dilated, there is no concentric left ventricular hypertrophy, there is reduced left ventricular systolic function, visually estimated ejection fraction approximately 40%, there is moderate hypokinesis involving the inferior basilar, inferolateral and posterolateral wall. 2. The right atrium and right ventricle are normal size and contractility. 3. The aortic valve is thickened and calcified leaflet continue to display mobility. 4. The mitral and tricuspid valve leaflets are minimally thickened. 5. The pulmonic valve is poorly visualized. 6. No significant pericardial effusion noted. DOPPLER INTERROGATION: Doppler interrogation of the aortic, mitral and tricuspid valvular presence of moderate mitral and mild tricuspid regurgitation, tricuspid regurgitation jet velocity is inadequate for calculation of the right ventricular systolic pressure, grade 1 diastolic dysfunction seen with tissue Doppler evidence of raised left atrial pressure. CONCLUSION: 1. Mildly enlarged left atrium, mildly dilated left ventricle, visually estimated ejection fraction 40% with multiple segmental wall motion abnormality described above, grade 1 diastolic dysfunction seen with tissue Doppler evidence of raised left atrial pressure. 2. Moderate mitral and mild tricuspid regurgitation 3. No significant pericardial effusion noted.
--- NOTE | 2019-01-06 07:57 | HMH.CNCARD ---
History of Present Illness Consult date: 01/06/19 Requesting physician: Phillip Bassett Consult reason: chest pain Chief complaint: chest pain Additional Medical History:: 1. Tobacco use, 41 yrs, 0.5-1.0 ppd 2. 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 Strong FH of CAD in siblings and mother in their 50's 4. History of drug use (marijuana, cocaine) 5. Hypertension, untreated 6. Hyperlipidemia, untreated 7. Chronic low back pain with peripheral neuropathy, recurrent NSAID use History of present illness: 58 year year old female patient of Dr. Dino Eason in [place], [place], presented to [facility] ER this morning complaining of chest pain. Pt reports she was awoken from sleep at 2:30 am with severe anterior chest pain that radiated to her right arm. She also reported profuse sweating. She states she smoked a marijuana cigarette laced with cocaine about 24 hours prior to her pain. She has no history of heart disease but does have hyperlipidemia and hypertension but does not take medication for these conditions. 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 The above per Dr. Bassett Pt denies any chest pains since being given ASA/NTG tab in the ER and now the NTG gtt. EKG shows sinus rhythm with no acute ST segment changes. Cardiology consulted for evaluation and recommendations. Peak troponin yesterday was 11.08. [facility] History Medical History: Reports:: Cancer (vaginal cancer as a child), Gall Bladder Disease, Hyperlipidemia, Hypertension Denies:: Diabetes Mellitus Type 1, Diabetes Mellitus Type 2, MRSA *Have you ever received a pneumonia vaccine?: No *Have you received a flu vaccine this season?: No Other Medical History: Reports: Other (Chronic back pain) Other Surgeries: Yes: Cholecystectomy, Tubal Ligation, Other (Bladder surgery (unknown type)) Amputation: No Fractures: No - *Social History Educational Level: Attended College Smoking Status: Current every day smoker Tobacco Type: cigarettes # Packs/Day (cigarettes): 1 Alcohol Intake: never Substance Use Type: marijuana, crack/cocaine, opiates Last Used Substance: hours (ago) (24) *Occupational Status:: employed Housing: house *Travel in the last 8 weeks: None - Psychiatric History Expresses thoughts of harming self/others: None Suicide Plan Description: No Plan Family Hx:: No significant family history Meds Home Medications Medication Instructions Recorded Confirmed Type Meloxicam 7.5 mg PO DAILYP PRN 01/05/19 01/05/19 History Allergies Allergy/AdvReac Type Severity Reaction Status Date / Time No Known Allergies Allergy Verified 01/05/19 03:55 Review of Systems - *Cardiovascular Reports chest pain, Reports shortness of breath with activity - *Respiratory Reports shortness of breath with activity, Denies cough - *Gastrointestinal Denies abdominal pain, Denies loose stools, Denies vomiting - *Genitourinary Denies blood in urine - *Musculoskeletal Reports joint pain, Reports back pain - *Neurologic Denies dizziness, Denies dizziness Exam Vital signs and Labs for Last 24 Hours: Temp Pulse Resp BP Pulse Ox 98.2 F 57 L 18 117/88 98 01/05/19 11:12 01/06/19 06:00 01/05/19 18:00 01/06/19 06:00 01/06/19 06:00 Laboratory Results - last 24 hr 01/05/19 04:00: PT 9.8, INR 0.94, APTT 25.6 01/05/19 10:09: Troponin I 11.08 H 01/05/19 15:05: APTT 38.9 H D 01/05/19 21:45: APTT 52.0 H* D 01/06/19 05:00: WBC 10.4, RBC 4.46, Hgb 13.1, Hct 40.2, MCV 90.2, MCH 29.4, MCHC 32.6, RDW 12.9, Plt Count 241 D, MPV 7.7, Neut % (Auto) 47.6, Lymph % (Auto) 42.9, [place] % (Auto) 5.7, Eos % (Auto) 3.4, Baso % (Auto) 0.4, Neut # (Auto) 4.9, Lymph # (Auto) 4.5, [place] # (Auto) 0.6, Eos # (Auto) 0.4, Baso # (Auto) 0.1 01/06/19 05:00: Sodium 142, Potassium 4.2, Chloride 106, Carbon Dioxide 26, Anion Gap 14.2, BUN 14, Creatinine 1.18 H, Estimated Creat Clear 66, Estimated GFR 47 L, Est G
--- NOTE | 2019-01-06 08:01 | P.CONS_ITS ---
History of Present Illness Consult date: 01/06/19 Requesting physician: Phillip Bassett Consult reason: chest pain Chief complaint: chest pain Additional Medical History:: 1. Tobacco use, 40 yrs, 0.5-1.0 ppd 2. 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 Strong FH of CAD in siblings and mother in their 50's 4. History of drug use (marijuana, cocaine) 5. Hypertension, untreated 6. Hyperlipidemia, untreated 7. Chronic low back pain with peripheral neuropathy, recurrent NSAID use History of present illness: 58 year year old female patient of Dr. Dino Eason in [place], [place], presented to [facility] ER this morning complaining of chest pain. Pt reports she was awoken from sleep at 2:30 am with severe anterior chest pain that radiated to her right arm. She also reported profuse sweating. She states she smoked a marijuana cigarette laced with cocaine about 24 hours prior to her pain. She has no history of heart disease but does have hyperlipidemia and hypertension but does not take medication for these conditions. 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 Bassett Pt denies any chest pains since being given ASA/NTG tab in the ER and now the NTG gtt. EKG shows sinus rhythm with no acute ST segment changes. Cardiology consulted for evaluation and recommendations. Peak troponin yesterday was 11.08. [facility] History Medical History: Reports:: Cancer (vaginal cancer as a child), Gall Bladder Disease, Hyperlipidemia, Hypertension Denies:: Diabetes Mellitus Type 1, Diabetes Mellitus Type 2, MRSA *Have you ever received a pneumonia vaccine?: No *Have you received a flu vaccine this season?: No Other Medical History: Reports: Other (Chronic back pain) Other Surgeries: Yes: Cholecystectomy, Tubal Ligation, Other (Bladder surgery (unknown type)) Amputation: No Fractures: No - *Social History Educational Level: Attended College Smoking Status: Current every day smoker Tobacco Type: cigarettes # Packs/Day (cigarettes): 1 Alcohol Intake: never Substance Use Type: marijuana, crack/cocaine, opiates Last Used Substance: hours (ago) (24) *Occupational Status:: employed Housing: house *Travel in the last 8 weeks: None - Psychiatric History Expresses thoughts of harming self/others: None Suicide Plan Description: No Plan Family Hx:: No significant family history Meds Home Medications Medication Instructions Recorded Confirmed Type Meloxicam 7.5 mg PO DAILYP PRN 01/05/19 01/05/19 History Allergies Allergy/AdvReac Type Severity Reaction Status Date / Time No Known Allergies Allergy Verified 01/05/19 03:55 Review of Systems - *Cardiovascular Reports chest pain, Reports shortness of breath with activity - *Respiratory Reports shortness of breath with activity, Denies cough - *Gastrointestinal Denies abdominal pain, Denies loose stools, Denies vomiting - *Genitourinary Denies blood in urine - *Musculoskeletal Reports joint pain, Reports back pain - *Neurologic Denies dizziness, Denies dizziness Exam Vital signs and Labs for Last 24 Hours: Temp Pulse Resp BP Pulse Ox 98.2 F 57 L 18 117/88 98 01/05/19 11:12 01/06/19 06:00 01/05/19 18:00 01/06/19 06:00 01/06/19 06:00 Laboratory Results - last 24 hr
--- NOTE | 2019-01-06 09:04 | HMH.ACPN2 ---
Internal Medicine - PN: Subj *Date: 01/06/19 *Time: 09:04 Interval history: No new complaints today, no chest pain. Exam Vital signs and Labs for Last 24 Hours: Temp Pulse Resp BP Pulse Ox 98.1 F 76 18 140/82 97 01/06/19 08:26 01/06/19 08:26 01/06/19 08:26 01/06/19 08:26 01/06/19 08:26 Laboratory Results - last 24 hr 01/05/19 10:09: Troponin I 11.08 H 01/05/19 15:05: APTT 38.9 H D 01/05/19 21:45: APTT 52.0 H* D 01/06/19 05:00: WBC 10.4, RBC 4.46, Hgb 13.1, Hct 40.2, MCV 90.2, MCH 29.4, MCHC 32.6, RDW 12.9, Plt Count 241 D, MPV 7.7, Neut % (Auto) 47.6, Lymph % (Auto) 42.9, [place] % (Auto) 5.7, Eos % (Auto) 3.4, Baso % (Auto) 0.4, Neut # (Auto) 4.9, Lymph # (Auto) 4.5, [place] # (Auto) 0.6, Eos # (Auto) 0.4, Baso # (Auto) 0.1 01/06/19 05:00: Sodium 142, Potassium 4.2, Chloride 106, Carbon Dioxide 26, Anion Gap 14.2, BUN 14, Creatinine 1.18 H, Estimated Creat Clear 66, Estimated GFR 47 L, Est GFR ( Amer) 57 L, Glucose 123 H, Calcium 8.2 L, Triglycerides 221 H, Cholesterol 233 H, LDL Cholesterol 144 H, VLDL Cholesterol 44 H, HDL Cholesterol 45, Cholesterol/HDL Ratio 5.2 H 01/06/19 05:00: APTT 54.0 H* Vital Signs - 24 hr 01/05/19 09:11 01/05/19 09:30 01/05/19 09:45 Temperature Pulse Rate Pulse Rate [Right Radial] 61 62 65 Respiratory Rate Blood Pressure Blood Pressure [Left Arm] Blood Pressure [Right Arm] 115/78 114/78 140/78 02 Sat by Pulse Oximetry 01/05/19 10:00 01/05/19 10:25 01/05/19 10:50 Temperature 98 F Pulse Rate 62 Pulse Rate [Right Radial] 62 Respiratory Rate 16 16 Blood Pressure 114/65 Blood Pressure [Left Arm] Blood Pressure [Right Arm] 122/74 02 Sat by Pulse Oximetry 99 01/05/19 11:12 01/05/19 12:00 01/05/19 13:00 Temperature 98.2 F Pulse Rate 60 Pulse Rate [Right Radial] 59 L 76 73 Respiratory Rate 16 15 16 Blood Pressure Blood Pressure [Left Arm] 118/55 L 127/86 Blood Pressure [Right Arm] 132/71 02 Sat by Pulse Oximetry 96 97 96 01/05/19 14:00 01/05/19 15:00 01/05/19 16:00 Temperature Pulse Rate 60 Pulse Rate [Right Radial] 66 95 H 65 Respiratory Rate 16 17 16 Blood Pressure Blood Pressure [Left Arm] 120/62 129/90 139/83 Blood Pressure [Right Arm] 02 Sat by Pulse Oximetry 97 96 7 L 01/05/19 17:00 01/05/19 18:00 01/05/19 19:00 Temperature Pulse Rate Pulse Rate [Right Radial] 61 77 77 Respiratory Rate 17 18 Blood Pressure Blood Pressure [Left Arm] 121/78 138/93 H 148/87 H Blood Pressure [Right Arm] 02 Sat by Pulse Oximetry 97 98 96 01/05/19 20:00 01/05/19 21:00 01/05/19 22:00 Temperature Pulse Rate 70 Pulse Rate [Right Radial] 70 79 70 Respiratory Rate Blood Pressure Blood Pressure [Left Arm] 113/76 146/94 H 166/89 H Blood Pressure [Right Arm] 02 Sat by Pulse Oximetry 97 99 97 01/05/19 23:00 01/06/19 00:00 01/06/19 02:00 Temperature Pulse Rate 70 Pulse Rate [Right Radial] 71 72 60 Respiratory Rate Blood Pressure Blood Pressure [Left Arm] 116/83 120/81 120/80 Blood Pressure [Right Arm] 02 Sat by Pulse Oximetry 97 97 96 01/06/19 03:00 01/06/19 04:00 01/06/19 05:00 Temperature Pulse Rate 80 Pulse Rate [Right Radial] 57 L 56 L 60 Respiratory Rate Blood Pressure Blood Pressure [Left Arm] 112/78 131/84 123/85 Blood Pressure [Right Arm] 02 Sat by Pulse Oximetry 96 98 96 01/06/19 06:00 01/06/19 08:00 01/06/19 08:26 Temperature 98.1 F Pulse Rate 75 Pulse Rate [Right Radial] 57 L 65 76 Respiratory Rate 18 Blood Pressure Blood Pressure [Left Arm] 117/88 140/82 Blood Pressure [Right Arm] 02 Sat by Pulse Oximetry 98 98 97 I & O for Last 24 hours: Intake & Output 01/03/19 01/04/19 01/05/19 01/06/19 23:59 23:59 23:59 23:59 Intake Total 1441 / 1441 899 / 899 Balance 1441 / 1441 899 / 899 Weight 173 lb 176 lb 7 oz - Constitutional no acute distress - *Routine HEENT Exam Head: Present:
--- NOTE | 2019-01-06 09:04 | HMH.ACPN2 ---
<Perla Gonzales - Last Filed: 01/06/19 09:04> Internal Medicine - PN: Subj *Date: 01/06/19 *Time: 09:04 Interval history: Patient sitting up in the bed bathing. 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 She states she makes her blood pressure go up. She denies chest pain and shortness of breath. She states she did get some sleep during the night. She has been seen by cardiology and a cardiac cath is planned. Exam Vital signs and Labs for Last 24 Hours: Temp Pulse Resp BP Pulse Ox 98.1 F 76 18 140/82 97 01/06/19 08:26 01/06/19 08:26 01/06/19 08:26 01/06/19 08:26 01/06/19 08:26 Laboratory Results - last 24 hr 01/05/19 10:09: Troponin I 11.08 H 01/05/19 15:05: APTT 38.9 H D 01/05/19 21:45: APTT 52.0 H* D 01/06/19 05:00: WBC 10.4, RBC 4.46, Hgb 13.1, Hct 40.2, MCV 90.2, MCH 29.4, MCHC 32.6, RDW 12.9, Plt Count 241 D, MPV 7.7, Neut % (Auto) 47.6, Lymph % (Auto) 42.9, [place] % (Auto) 5.7, Eos % (Auto) 3.4, Baso % (Auto) 0.4, Neut # (Auto) 4.9, Lymph # (Auto) 4.5, [place] # (Auto) 0.6, Eos # (Auto) 0.4, Baso # (Auto) 0.1 01/06/19 05:00: Sodium 142, Potassium 4.2, Chloride 106, Carbon Dioxide 26, Anion Gap 14.2, BUN 14, Creatinine 1.18 H, Estimated Creat Clear 66, Estimated GFR 47 L, Est GFR ( Amer) 57 L, Glucose 123 H, Calcium 8.2 L, Triglycerides 221 H, Cholesterol 233 H, LDL Cholesterol 144 H, VLDL Cholesterol 44 H, HDL Cholesterol 45, Cholesterol/HDL Ratio 5.2 H 01/06/19 05:00: APTT 54.0 H* I & O for Last 24 hours: Intake & Output 05/10/19 05/11/19 05/12/19 05/13/19 11:59 11:59 11:59 11:59 Intake Total 2340 / 2340 Balance 2340 / 2340 Weight 173 lb 176 lb 7 oz - Constitutional no acute distress Comments: Taking a bed bath. - *Routine Respiratory Exam Present: CTA bilaterally (Anteriorly and posteriorly) - *Routine Cardiovascular Exam Present: RRR - *Routine Abdominal Exam Present: soft, normoactive bowel sounds. Absent: tenderness - *Routine Extremities Exam Present: pulses intact. Absent: edema, calf tenderness - *Routine Neurological Exam Present: alert, oriented X3 Assessment and Plan (1) Non-STEMI (non-ST elevated myocardial infarction) Current visit: Yes Status: Acute Category: Medical Code(s): I21.4 - Non-ST elevation (NSTEMI) myocardial infarction (2) Cocaine use Current visit: Yes Status: Acute Category: Medical Code(s): F14.90 - Cocaine use, unspecified, uncomplicated (3) Hyperlipidemia Current visit: Yes Status: Acute Category: Medical Code(s): E78.5 - Hyperlipidemia, unspecified (4) Hypertension Current visit: Yes Status: Acute Category: Medical Code(s): I10 - Essential (primary) hypertension (5) Cigarette nicotine dependence, uncomplicated Current visit: Yes Status: Acute Category: Medical Code(s): F17.210 - Nicotine dependence, cigarettes, uncomplicated (6) Polysubstance abuse Current visit: Yes Status: Acute Category: Medical Code(s): F19.10 - Other psychoactive substance abuse, uncomplicated - Assessment and plan all Dx Assessment and Plan for all problems:: Cardiology has seen patient. Cardiac cath planned for this a.m. <Phillip Bassett - Last Filed: 01/06/19 12:39> Internal Medicine - PN: Subj *Date: 01/06/19 *Time: 12:38 Exam Vital signs and Labs for Last 24 Hours: Temp Pulse Resp BP Pulse Ox 98.1 F 61 18 134/86 98 01/06/19 08:26 01/06/19 12:30 01/06/19 12:30 01/06/19 12:30 01/06/19 12:30 Laboratory Results - last 24 hr 01/05/19 15:05: APTT 38.9 H D 01/05/19 21:45: APTT 52.0 H* D 01/06/19 05:00: WBC 10.4, RBC 4.46, Hgb 13.1, Hct 40.2, MCV 90.2, MCH 29.4, MCHC 32.6, RDW 12.9, Plt Count 241 D, MPV 7.7, Neut % (Auto) 47.6, Lymph % (Auto) 42.9, [place] % (Auto) 5.7, Eos % (Auto) 3.4, Baso % (Auto) 0.4, Neut # (Auto) 4.9, Lymph # (Auto) 4.5, [place] # (Auto) 0.6, Eos # (Auto) 0.4, Baso # (Auto) 0.1 01/06/19 05:00: Sodium 142, Potassium 4.2, Chloride 106, Carbon Dioxide 26
[2019-01-06 09:10] LABS: Troponin I 10.68 ng/ml (0.00-0.06)
[2019-01-06 11:24] LABS: Activated Partial Thrombo Time 53.2 seconds (23.6-34.0)
[2019-01-06 12:40] LABS: CATHL Activated Clotting Time 374 SEC (74-125)
--- NOTE | 2019-01-06 13:23 | PC.NURSE ---
received patient from cathlab post heart cath. @ 1245 via stretcher on room air. tracelet in place on right radial wrist. zero signs of bleeding, cap refill brisk, pulses +2. patient denies pain or nausea, family at bedside. instructed patient on signs and symptoms to report and current activity level.
--- NOTE | 2019-01-06 14:33 | PC.NURSE ---
1410 - Released 2mls of air from radial band. Current pressure is 10 mls of air. No acute bleeding noted from (R) radial incision. Will continue to monitor.
--- NOTE | 2019-01-06 14:33 | PC.NURSE ---
1425 - Released 2mls of air from radial band. Current pressure is 8 mls of air. No acute bleeding noted from (R) radial incision. Will continue to monitor.
--- NOTE | 2019-01-06 14:43 | PC.NURSE ---
DECREASED RADIAL BAND TO 6, 0 SIGNS OF BLEEDING NOTED, ZERO SIGNS OF HEMATOMA. PATIENT DENIES PAIN
--- NOTE | 2019-01-06 14:44 | PC.NURSE ---
1400 shift assessment. 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 patient denies pain or nausea. patient awake alert and oriented. denies sob.
--- NOTE | 2019-01-06 15:24 | PC.NURSE ---
radial armband pressure released to 2. zero signs of bleeding or forming hematoma
--- NOTE | 2019-01-06 15:48 | PC.NURSE ---
radial band pressure decreased to zero and removed. no sign of bleeding or formation of hematoma. radial pulses +2, cap refill brisk. patient denies pain
--- NOTE | 2019-01-06 18:44 | PC.NURSE ---
All care provided this shift by Bonny Shetty RN was directly supervised by this sql report writer.
--- NOTE | 2019-01-06 19:11 | PC.NURSE ---
report given to oscar
[2019-01-07] VITALS: BP 94/52; PULSE 61; PULSE 70; O2SAT 95
[2019-01-07 02:00] VITALS: BP 118/78; PULSE 60; O2SAT 95
--- NOTE | 2019-01-07 02:26 | PC.NURSE ---
She has been resting in bed most of the shift. Ambulating to the bathroom with steady gait. She signed the consent to leave the care area AMA; Dr. Mcwilliams aware. She is s/p heart cath with stent placement. Right radial site DSG is intact with drainage area marked. She denies pain and SOA. Reports her last BM was 01/06
[2019-01-07 04:00] VITALS: BP 139/93; PULSE 50; PULSE 57; O2SAT 96
[2019-01-07 05:00] VITALS: BMI 30.1
[2019-01-07 06:00] VITALS: BP 132/71; PULSE 59; O2SAT 94
[2019-01-07 06:12] LABS: Basophils % 0.7 % (0.1-2.0); Eosinophils % 3.1 % (0.1-12.0); Hematocrit 42.8 % (37.0-47.0); Hemoglobin 14.3 g/dL (12.2-16.2); Lymphocytes % 35.1 % (10-50); Mean Corpuscular HGB Conc 33.3 g/dL (31.8-35.4); Mean Corpuscular Hemoglobin 29.7 pg (27.0-31.2); Mean Corpuscular Volume 89.3 fl (81-99); Mean Platelet Volume 7.6 fl (7.4-10.4); Monocytes % 6.1 % (1.7-9.3); Neutrophils # 5.3 K/mm3 (1.8-7.8); Neutrophils % 53.8 % (37.0-80.0); Platelet Count 269 K/mm3 (142-424); White Blood Count 9.9 K/mm3 (4.8-10.8)
[2019-01-07 06:13] LABS: Basophils # 0.1 K/mm3 (0-0.2); Eosinophils # 0.3 K/mm3 (0.0-0.4); Lymphocytes # 3.5 K/mm3 (0.7-4.5); Monocytes # 0.6 K/mm3 (0.1-1.0)
[2019-01-07 06:43] LABS: Anion Gap 12.4 mEq/L (5-15); Blood Urea Nitrogen 15 mg/dL (7-18); Calcium 8.4 mg/dL (8.5-10.1); Carbon Dioxide 23 mmol/L (21.0-32.0); Chloride 107 mmol/L (98-107); Creatinine Clearance Estimated 80 mL/min (50-200); Creatinine,Serum 0.98 mg/dL (0.55-1.02); Estimated Glomerular Filt Rate 58 ml/min (>60); GFR (African American) 71 ML/MIN (>60); Glucose 134 mg/dL (74-106); Sodium 138 mmol/L (136-145)
[2019-01-07 06:58] LABS: Potassium 4.4 mmoL/L (3.5-5.1)
--- NOTE | 2019-01-07 07:41 | HMH.PNCARD ---
Subjective Date: 01/07/19 Time: 07:41 Principal diagnosis: NSTEMI Interval history: 58-year-old white female in bed in no acute distress. Nurses report that the patient has been leaving the floor to smoke. Patient denies any chest pain, pressure or tightness. She states she is breathing and feeling better. Telemetry shows no arrhythmias. Patient did receive drug-eluting stent to the mid LAD. Patient does have some remaining moderate disease in her ramus artery. Echocardiogram results show: 1. Mildly enlarged left atrium, mildly dilated left ventricle, visually estimated ejection fraction 40% with multiple segmental wall motion abnormality described above, grade 1 diastolic dysfunction seen with tissue Doppler evidence of raised left atrial pressure. 2. Moderate mitral and mild tricuspid regurgitation 3. No significant pericardial effusion noted Exam Vital signs and Labs for Last 24 Hours: Temp Pulse Resp BP Pulse Ox 98.2 F 59 L 17 132/71 94 L 01/06/19 19:15 01/07/19 06:00 01/06/19 19:15 01/07/19 06:00 01/07/19 06:00 Laboratory Results - last 24 hr 01/06/19 05:00: Troponin I 10.68 H 01/06/19 10:55: APTT 53.2 H* 01/06/19 11:43: Activated Clotting Time 374 H* 01/07/19 05:39: WBC 9.9, RBC 4.80, Hgb 14.3, Hct 42.8, MCV 89.3, MCH 29.7, MCHC 33.3, RDW 13.0, Plt Count 269, MPV 7.6, Neut % (Auto) 53.8, Lymph % (Auto) 35.1, [place] % (Auto) 6.1, Eos % (Auto) 3.1, Baso % (Auto) 0.7, Neut # (Auto) 5.3, Lymph # (Auto) 3.5, [place] # (Auto) 0.6, Eos # (Auto) 0.3, Baso # (Auto) 0.1 01/07/19 05:39: Sodium 138, Potassium 4.4, Chloride 107, Carbon Dioxide 23, Anion Gap 12.4, BUN 15, Creatinine 0.98, Estimated Creat Clear 80, Estimated GFR 58 L, Est GFR ( Amer) 71 D, Glucose 134 H, Calcium 8.4 L I & O for Last 24 hours: Intake & Output 01/04/19 01/05/19 01/06/19 01/07/19 11:59 11:59 11:59 11:59 Intake Total 2340 / 2340 750 / 750 Balance 2340 / 2340 750 / 750 Weight 173 lb 176 lb 7 oz 175 lb 8 oz - *Routine Respiratory Exam Present: CTA bilaterally. Absent: accessory muscle use, rales, rhonchi, wheezes - *Routine Cardiovascular Exam Present: RRR. Absent: murmur, gallop, rubs - *Routine Extremities Exam Absent: edema, calf tenderness - *Routine Neurological Exam Present: alert, oriented X3, moving all extremities Progress Note: A&P (1) Non-STEMI (non-ST elevated myocardial infarction) Status: Acute Current Visit: Yes (2) Cocaine use Status: Acute Current Visit: Yes (3) Hyperlipidemia Status: Acute Current Visit: Yes (4) Hypertension Status: Acute Current Visit: Yes (5) Cigarette nicotine dependence, uncomplicated Status: Acute Current Visit: Yes (6) Polysubstance abuse Status: Acute Current Visit: Yes (7) Ischemic cardiomyopathy Status: Acute Current Visit: Yes Assessment and Plan for All Diagnoses:: 1. Enforced the need to take both aspirin 81 mg daily and Brilinta 90 mg twice daily due to drug-eluting stent placement. 2. Patient is on metoprolol 12.5 mg twice daily and lisinopril 5 mg daily in the setting of her ischemic cardiomyopathy. 3. Continue atorvastatin 40 mg daily for hyperlipidemia and inflammatory process. 4. Discussed with the patient the need to discontinue all substance abuse including marijuana, cocaine and tobacco. 5. Patient can be discharged home today with follow-up in our office in 1 week.
[2019-01-07 08:00] VITALS: BP 118/79; PULSE 65; RESP 17; TEMP 36.7; O2SAT 98
--- NOTE | 2019-01-07 08:43 | HMH.ACPN2 ---
Internal Medicine - PN: Paul *Date: 01/07/19 *Time: 08:43 Interval history: Pt did well overnight, she is anxious to go home. Cardiology note reviewed. Exam Vital signs and Labs for Last 24 Hours: Temp Pulse Resp BP Pulse Ox 98.0 F 65 17 118/79 98 01/07/19 08:00 01/07/19 08:00 01/07/19 08:00 01/07/19 08:00 01/07/19 08:00 Laboratory Results - last 24 hr 01/06/19 05:00: Troponin I 10.68 H 01/06/19 10:55: APTT 53.2 H* 01/06/19 11:43: Activated Clotting Time 374 H* 01/07/19 05:39: WBC 9.9, RBC 4.80, Hgb 14.3, Hct 42.8, MCV 89.3, MCH 29.7, MCHC 33.3, RDW 13.0, Plt Count 269, MPV 7.6, Neut % (Auto) 53.8, Lymph % (Auto) 35.1, [place] % (Auto) 6.1, Eos % (Auto) 3.1, Baso % (Auto) 0.7, Neut # (Auto) 5.3, Lymph # (Auto) 3.5, [place] # (Auto) 0.6, Eos # (Auto) 0.3, Baso # (Auto) 0.1 01/07/19 05:39: Sodium 138, Potassium 4.4, Chloride 107, Carbon Dioxide 23, Anion Gap 12.4, BUN 15, Creatinine 0.98, Estimated Creat Clear 80, Estimated GFR 58 L, Est GFR ( Amer) 71 D, Glucose 134 H, Calcium 8.4 L Vital Signs - 24 hr 01/06/19 10:00 01/06/19 12:00 01/06/19 12:05 Temperature Pulse Rate Pulse Rate [Right Radial] 84 56 L 57 L Respiratory Rate 24 18 18 Blood Pressure [Left Arm] 131/95 H 121/76 134/86 02 Sat by Pulse Oximetry 97 98 98 01/06/19 12:06 01/06/19 12:10 01/06/19 12:15 Temperature Pulse Rate 61 Pulse Rate [Right Radial] 61 56 L 56 L Respiratory Rate 18 16 16 Blood Pressure [Left Arm] 134/86 121/76 127/83 02 Sat by Pulse Oximetry 98 99 97 01/06/19 12:30 01/06/19 12:45 01/06/19 13:00 Temperature Pulse Rate Pulse Rate [Right Radial] 61 67 74 Respiratory Rate 18 15 16 Blood Pressure [Left Arm] 134/86 141/70 H 144/89 H 02 Sat by Pulse Oximetry 98 98 97 01/06/19 13:15 01/06/19 13:45 01/06/19 14:00 Temperature Pulse Rate Pulse Rate [Right Radial] 66 82 Respiratory Rate 15 15 Blood Pressure [Left Arm] 149/80 H 144/77 H 02 Sat by Pulse Oximetry 97 97 98 01/06/19 14:15 01/06/19 14:45 01/06/19 15:15 Temperature Pulse Rate Pulse Rate [Right Radial] 61 63 60 Respiratory Rate 16 14 15 Blood Pressure [Left Arm] 127/74 139/85 138/77 02 Sat by Pulse Oximetry 97 96 94 L 01/06/19 16:00 01/06/19 16:15 01/06/19 17:15 Temperature 98.4 F Pulse Rate 60 Pulse Rate [Right Radial] 96 H 84 Respiratory Rate 18 14 Blood Pressure [Left Arm] 104/80 L 126/69 02 Sat by Pulse Oximetry 93 L 97 01/06/19 18:15 01/06/19 19:15 01/06/19 20:00 Temperature 98.2 F Pulse Rate 90 Pulse Rate [Right Radial] 85 74 Respiratory Rate 22 17 Blood Pressure [Left Arm] 150/85 H 124/81 02 Sat by Pulse Oximetry 96 95 95 01/06/19 22:00 01/07/19 00:00 01/07/19 02:00 Temperature Pulse Rate 70 Pulse Rate [Right Radial] 66 61 60 Respiratory Rate Blood Pressure [Left Arm] 124/82 94/52 L 118/78 02 Sat by Pulse Oximetry 94 L 95 95 01/07/19 04:00 01/07/19 06:00 01/07/19 08:00 Temperature 98.0 F Pulse Rate 50 L Pulse Rate [Right Radial] 57 L 59 L 65 Respiratory Rate 17 Blood Pressure [Left Arm] 139/93 H 132/71 118/79 02 Sat by Pulse Oximetry 96 94 L 98 I & O for Last 24 hours: Intake & Output 05/1101/05/19 01/06/19 01/07/19 23:59 23:59 23:59 23:59 Intake Total 1441 / 1441 1619 / 1619 Balance 1441 / 1441 1619 / 1619 Weight 173 lb 176 lb 7 oz 175 lb 8 oz - Constitutional no acute distress - *Routine HEENT Exam Head: Present: normocephalic Eye: Present: EOMI ENT: Present: mucous membranes moist - *Routine Neck Exam Present: supple. Absent: lymphadenopathy - *Routine Respiratory Exam Present: CTA bilaterally - *Routine Cardiovascular Exam Present: RRR - *Routine Abdominal Exam Present: soft, normoactive bowel sounds. Absent: tenderness - *Routine Extremities Exam Absent: cyanosis, clubbing, edema - *Routine Skin Exam Present: warm. Absent: rash - *Routine Neurological Exam Present: alert, katherine
--- NOTE | 2019-01-07 10:24 | HMH.PHAINT ---
DISCHARGE COUNSELING PROVIDED TO PATIENT FOR ALL MEDICATIONS. SEE ENVIRONMENTAL PROFESSIONAL DISCHARGE NOTE.
--- NOTE | 2019-01-07 10:24 | HMH.PHACLD ---
Shante Conteh has received discharge medication counseling on the following medications: NEW PRESCRIPTIONS: ASPIRIN BRILINTA ATORVASTATIN METOPROLOL LISINOPRIL DRUG MONOGRAPHS WERE GIVEN TO PATIENT. PATIENT VERBALIZED UNDERSTANDING AND DID NOT HAVE ANY QUESTIONS.
--- NOTE | 2019-01-08 12:51 | HMH.DCSUM ---
General - General Admission date:: 01/05/19 Discharge date: 01/07/19 HPI HPI: 58 year year old female patient of Dr. Dino Eason in [place], [place], presented to [facility] ER this morning complaining of chest pain. Pt reports she was awoken from sleep at 2:30 am with severe anterior chest pain that radiated to her right arm. She also reported profuse sweating. She states she smoked a marijuana cigarette laced with cocaine about 24 hours prior to her pain. She has no history of heart disease but does have hyperlipidemia and hypertension but does not take medication for these conditions. 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 Hospital Course Hospital Course: The patient's chest x-ray showed nothing acute. She had a CTA showing no evidence of PE or aortic dissection. Her drug screen was positive for opiates, cocaine, and marijuana. Her troponin I was elevated at 2.69. Cardiology was consulted and she was started on nitroglycerin and heparin drips. She received a loading dose of Brilinta in the emergency room and was admitted to the stepdown unit. Cardiology saw the patient and recommended a left heart cath due to a non-ST elevation PA. They also ordered an echo. Her LDL was elevated at 144, therefore they added atorvastatin 40 mg daily. They also encourage smoking cessation. She was started on Brilinta 90 mg twice daily and aspirin 81 mg daily. Her heart cath revealed severe proximal to mid LAD disease and she had successful stenting to the proximal to mid LAD. Cardiology recommended Brilinta and aspirin for 1 year, avoidance of illegal polysubstance narcotic abuse, an ROYAL inhibitor and beta-lotus, and cardiac rehabilitation. They also recommended a stress test in 6 weeks to determine if the ramus intermedius lesion was producing ischemia. Dr. Hay preferred medical management rather than stenting for this area. Her echo showed an EF of 40% with grade 1 diastolic dysfunction. She had no further chest pain. She was started on metoprolol 12.5 mg twice daily and lisinopril 5 mg daily due to ischemic cardiomyopathy. Cardiology felt she could be discharged home with a follow-up in their office in 1 week and with her primary PCP in 2 weeks. Objective Vital signs: Temp Pulse Resp BP Pulse Ox 98.0 F 65 17 118/79 98 01/07/19 08:00 01/07/19 08:00 01/07/19 08:00 01/07/19 08:00 01/07/19 08:00 Narrative: - Constitutional no acute distress - *Routine HEENT Exam Head: Present: normocephalic Eye: Present: EOMI, PERRL ENT: Present: mucous membranes moist - *Routine Neck Exam Present: supple. Absent: lymphadenopathy - *Routine Respiratory Exam Present: CTA bilaterally - *Routine Cardiovascular Exam Present: RRR - *Routine Abdominal Exam Present: soft, normoactive bowel sounds. Absent: tenderness - *Routine Extremities Exam Absent: cyanosis, clubbing, edema - *Routine Skin Exam Present: warm. Absent: rash - *Routine Neurological Exam Present: alert, oriented X3 DS: Diagnosis - Discharge Diagnosis (1) Non-STEMI (non-ST elevated myocardial infarction) Status: Acute (2) Cocaine use Status: Acute (3) Hyperlipidemia Status: Acute (4) Hypertension Status: Acute (5) Cigarette nicotine dependence, uncomplicated Status: Acute (6) Polysubstance abuse Status: Acute (7) Ischemic cardiomyopathy Status: Acute (8) Ejection fraction < 50% Status: Acute Discharge Plan - Patient Discharge Instructions ACTIVITY: Continue current activity DIET: continue same diet Additional Instructions: Smoking cessation Patient Instructions: DI for Heart Attack, High Triglycerides, Heart-Healthy Diet, DI for Heart Failure, DI for Cardiac Catheterization, DI for Cocaine Use Disorder, DI for Surgical Site Infection, How to Quit Smoking - Follow up Plan Follow up with: Kvng Eason MD [Referring] - 2 suresh
--- NOTE | 2019-01-08 12:57 | P.DS_ITS ---
General - General Admission date:: 01/05/19 Discharge date: 01/07/19 HPI HPI: 58 year year old female patient of Dr. Dino Eason in [place], [place], presented to [facility] ER this morning complaining of chest pain. Pt reports she was awoken from sleep at 2:30 am with severe anterior chest pain that radiated to her right arm. She also reported profuse sweating. She states she smoked a marijuana cigarette laced with cocaine about 24 hours prior to her pain. She has no history of heart disease but does have hyperlipidemia and hypertension but does not take medication for these conditions. 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 Hospital Course Hospital Course: The patient's chest x-ray showed nothing acute. She had a CTA showing no evidence of PE or aortic dissection. Her drug screen was positive for opiates, cocaine, and marijuana. Her troponin I was elevated at 2.69. Cardiology was consulted and she was started on nitroglycerin and heparin drips. She received a loading dose of Brilinta in the emergency room and was admitted to the stepdown unit. Cardiology saw the patient and recommended a left heart cath due to a non-ST elevation GA. They also ordered an echo. Her LDL was elevated at 144, therefore they added atorvastatin 40 mg daily. They also encourage smoking cessation. She was started on Brilinta 90 mg twice daily and aspirin 81 mg daily. Her heart cath revealed severe proximal to mid LAD disease and she had successful stenting to the proximal to mid LAD. Cardiology recommended Brilinta and aspirin for 1 year, avoidance of illegal polysubstance narcotic abuse, an ROYAL inhibitor and beta-lotus, and cardiac rehabilitation. They also recommended a stress test in 6 weeks to determine if the ramus intermedius les ion was producing ischemia. Dr. Hay preferred medical management rather than stenting for this area. Her echo showed an EF of 40% with grade 1 diastolic dysfunction. She had no further chest pain. She was started on metoprolol 12.5 mg twice daily and lisinopril 5 mg daily due to ischemic cardiomyopathy. Cardiology felt she could be discharged home with a follow-up in their office in 1 week and with her primary PCP in 2 weeks. Objective Vital signs: Temp Pulse Resp BP Pulse Ox 98.0 F 65 17 118/79 98 01/07/19 08:00 01/07/19 08:00 01/07/19 08:00 01/07/19 08:00 01/07/19 08:00 Narrative: - Constitutional no acute distress - *Routine HEENT Exam Head: Present: normocephalic Eye: Present: EOMI, PERRL ENT: Present: mucous membranes moist - *Routine Neck Exam Present: supple. Absent: lymphadenopathy - *Routine Respiratory Exam Present: CTA bilaterally - *Routine Cardiovascular Exam Present: RRR - *Routine Abdominal Exam Present: soft, normoactive bowel sounds. Absent: tenderness - *Routine Extremities Exam Absent: cyanosis, clubbing, edema - *Routine Skin Exam Present: warm. Absent: rash - *Routine Neurological Exam Present: alert, oriented X3 DS: Diagnosis - Discharge Diagnosis (1) Non-STEMI (non-ST elevated myocardial infarction) Status: Acute (2) Cocaine use Status: Acute (3) Hyperlipidemia Status: Acute (4) Hypertension Status: Acute (5) Cigarette nicotine dependence, uncomplicated Status: Acute (6) Polysubstance abuse Status: Acute (7) Ischemic cardiomyopathy Status: Acute (8) Ejecti
== END 2019-01-07 10:40 | disposition home or self-care (01) | DRG 247 ==
LOC: ER 07:54 → 2ND 09:22
PROVIDERS: Emergency Medicine; Internal Medicine; Physician Assistant; Admitting Provider Family Medicine; Emergency Provider Emergency Medicine; Visit Provider Family Medicine
PROC: 027034Z Dilation of Coronary Artery, One Artery with Drug-eluting Intraluminal Device, Percutaneous Approach (ICD-10-PCS; principal; 2019-01-06 10:00)
DX: I21.4 Non-ST elevation (NSTEMI) myocardial infarction (principal); Z72.0 Tobacco use; I10 Essential (primary) hypertension; E78.5 Hyperlipidemia, unspecified; Z82.49 Family history of ischemic heart disease and other diseases of the circulatory system; I25.5 Ischemic cardiomyopathy; F14.10 Cocaine abuse, uncomplicated; F11.10 Opioid abuse, uncomplicated; F12.10 Cannabis abuse, uncomplicated
CPT/HCPCS: 36415; 71045; 71275; 80048; 80061; 80305; 84484; 85025; 85347; 85378; 85610; 85730; 92928; 93005; 93306; 93458; 96365; 96367; 96375; 99152; 99285; C1725; C1769; C1876; C9600; J1644; J2405; Q9967

== ENCOUNTER → 2019-01-15 09:41 | Outpatient (CLI) | payer MEDICAID, SELFPAY ==
[2019-01-15 09:55] LABS: Hematocrit 46.2 % (37.0-47.0); Hemoglobin 15.4 g/dL (12.2-16.2)
[2019-01-15 09:56] LABS: Blood Urea Nitrogen 15 mg/dL (7-18); Creatinine,Serum 1.14 mg/dL (0.55-1.02); Estimated Glomerular Filt Rate 49 ml/min (>60); GFR (African American) 59 ML/MIN (>60)
== END ==
PROVIDERS: Visit Provider Internal Medicine
DX: Z95.5 Presence of coronary angioplasty implant and graft (principal)
CPT/HCPCS: 36415; 82565; 84520; 85014; 85018

== ENCOUNTER → 2019-02-05 18:02 | Outpatient (CLI) | payer MEDICAID, SELFPAY ==
[2019-02-05 19:18] LABS: T4 (Thyroxine) 7.4 ug/dl (4.7-13.3); Thyroid Stimulating Hormone 2.92 uIU/ml (0.358-3.740)
[2019-02-07 09:31] LABS: Hep A Ab, IgM Negative (Negative); Hepatitis B Core Antibody IgM Negative (Negative); Hepatitis B Surface Antigen Negative (Negative)
[2019-02-07 17:52] LABS: Hepatitis C Antibody <0.1 s/co ratio (0.0-0.9); Vitamin D 25 Hydroxy 20.6 ng/mL (30.0-100.0)
== END ==
PROVIDERS: Visit Provider Nurse Practitioner Family
DX: E78.5 Hyperlipidemia, unspecified (principal); I10 Essential (primary) hypertension; E55.9 Vitamin D deficiency, unspecified; R53.83 Other fatigue; R73.09 Other abnormal glucose
CPT/HCPCS: 80074; 82652; 83036; 84436; 84443

== ENCOUNTER → 2019-02-07 10:49 | Outpatient (CLI) | payer MEDICAID, SELFPAY ==
--- NOTE | 2019-02-07 10:52 | CA_ITS ---
PROCEDURE: 2-D M-mode and color Doppler study INDICATIONS FOR THE TEST: Chest pain+ COPD Heart Murmur Tobacco Smoking+ Palpitations Fatigue Syncope Edema Hypertension+Diabetes Mellitus Rheumatic Fever SOB VARGAS Obesity Hyperlipidemia+ Family History HD Additional History ef 40% 01/05/19, cm, cocaine use, abn ekg, stetns PATIENT INFORMATION HEIGHT: 64 WEIGHT:169 GENDER: Female B/P:158/72 2-D/M-MODE INTERPRETATION: 2-D MEASUREMENTS OBSERVED VALUES IN CMS Right Ventricular Dimension (RVDd) 2.0 Interventricular Septum (Thickness)(IVsd) 1.2 Left Ventricular Internal Dimensions(LVIDd) 4.8 Left Ventricular Posterior Wall (Thickness)(LVPWd) 1.0 Aortic Root Aortic Cusp Separation Left Atrial Dimensions (LAD) 2D 1. Left atrium is mildly enlarged, left ventricle is normal size, mild concentric left ventricular hypertrophy, visually estimated ejection fraction of 45-50% with inferior basal wall moderate hypokinesis. 2. The right atrium and right ventricle are normal size and contractility. 3. The aortic valve is thickened and calcified, leaflet continue to display mobility. 4. The mitral and tricuspid valve leaflets are minimally thickened. 5. The pulmonic valve is poorly visualized. 6. No significant pericardial effusion noted. DOPPLER INTERROGATION: There is no Doppler performed. CONCLUSION: 1. Mildly enlarged left atrium, normal left ventricular size, mild concentric left ventricular hypertrophy, visually estimated ejection fraction 45-50% with segmental wall motion abnormality described above. 2. No significant pericardial effusion noted.
== END ==
PROVIDERS: PCP Emergency Medicine; Visit Provider Physician Assistant
DX: I25.5 Ischemic cardiomyopathy (principal); I25.10 Atherosclerotic heart disease of native coronary artery without angina pectoris; R06.09 Other forms of dyspnea; E78.5 Hyperlipidemia, unspecified; F14.90 Cocaine use, unspecified, uncomplicated; F17.210 Nicotine dependence, cigarettes, uncomplicated; I10 Essential (primary) hypertension
CPT/HCPCS: 93308

== ENCOUNTER → 2019-03-10 06:44 | Outpatient (CLI) | payer MEDICAID, SELFPAY ==
--- NOTE | 2019-03-10 06:48 | NM_ITS ---
CARDIOLITE SPECT MYOCARDIAL PERFUSION LEXISCAN, REST AND STRESS: [facility] REVIEW QGS EF AND WALL MOTION EVALUATION: QPS - PERFUSION EVALUATION HISTORY: Chest pain, SOB, CAD, Hx of NM, Tobacco use, Family history DOSE: 10.64 mCi technetium 99m mibi intravenously at rest followed by 31.0 mCi technetium 99m mibi following the intravenous ministration of 0.4 mg of Lexiscan. Resting blood pressure is 150/81. Stress blood pressure 141/85. FINDINGS: Ejection fraction is calculated to be 65%. Stress images reveal decreased activity in the inferolateral wall wall rest images reveal uniform myocardial activity IMPRESSION: Reversible ischemia in the inferolateral wall with normal ejection fraction with abnormal gated images. There appears to be both an anterior apical and inferior apical wall motion abnormality. High risk abnormal stress test
--- NOTE | 2019-03-10 07:33 | HMH.ITSHM ---
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 []ATORVASTATIN ASA METOPROLOL LISINOPRIL VITAMIN D
== END ==
PROVIDERS: PCP Emergency Medicine; Visit Provider Internal Medicine
DX: I11.9 Hypertensive heart disease without heart failure (principal); I25.10 Atherosclerotic heart disease of native coronary artery without angina pectoris; R06.02 Shortness of breath; R07.9 Chest pain, unspecified
CPT/HCPCS: 78452; 93017; A9502; J2785

== ENCOUNTER → 2019-05-19 10:56 | Outpatient (CLI) | payer MEDICAID, SELFPAY ==
[2019-05-19 12:54] LABS: Alanine Aminotransferase 33 U/L (12-78); Albumin Level 3.7 gm/dL (3.4-5.0); Alkaline Phosphatase 71 U/L (46-116); Aspartate Amino Transferase 22 U/L (15-37); Bilirubin,Direct 0.1 mg/dL (0.0-0.2); Bilirubin,Indirect 0.3 mg/dL (0.0-0.9); Bilirubin,Total 0.4 mg/dL (0.2-1.0); Chol/HDL Ratio 4.1 (1-3.5); Cholesterol 150 mg/dL (140-200); HDL Cholesterol 37 mg/dL (29-89); LDL Cholesterol 58 mg/dL (0-130); Total Protein,Serum 6.4 gm/dL (6.4-8.2); Triglycerides 274 mg/dL (30-200); VLDL Cholesterol 55 mg/dL (0-40)
[2019-05-21 10:48] LABS: Vitamin D 25 Hydroxy 42.9 ng/mL (30.0-100.0)
== END ==
PROVIDERS: Visit Provider Nurse Practitioner Family
DX: E78.5 Hyperlipidemia, unspecified (principal); I10 Essential (primary) hypertension; I20.9 Angina pectoris, unspecified; I25.118 Atherosclerotic heart disease of native coronary artery with other forms of angina pectoris; R06.00 Dyspnea, unspecified; R94.30 Abnormal result of cardiovascular function study, unspecified; I25.10 Atherosclerotic heart disease of native coronary artery without angina pectoris
CPT/HCPCS: 36415; 80061; 80076; 82652

== ENCOUNTER → 2019-06-03 11:13 | Outpatient (CLI) | payer MEDICAID, SELFPAY ==
[2019-06-03 12:00] VITALS: PULSE 60; PULSE 64
== END ==
PROVIDERS: PCP Emergency Medicine; Visit Provider Emergency Medicine
DX: R06.00 Dyspnea, unspecified (principal)
CPT/HCPCS: 94060; 94618; 94640

== ENCOUNTER → 2019-07-12 11:46 | Outpatient (CLI) | payer OTHER, SELFPAY ==
--- NOTE | 2019-07-12 11:51 | XR_ITS ---
PROCEDURE: XR CERVICAL SPINE 5V CLINICAL INDICATION: pain in both shoulders COMPARISON: No exams were available for comparison FINDINGS: There is straightening of the normal curvature. C1 through C7 appear intact. There is mild disc space narrowing at the C5-6 and C6-7 levels with mild posterior and anterior osteophytic spurring. Oblique films show mild neural foraminal narrowing bilaterally at the C5-6 level secondary to spurring of the uncinate joints. There is no fracture or subluxation. The prevertebral soft tissues are normal and the odontoid is not IMPRESSION: Mild to moderate degenerate disc disease C5-6 and C6-7 with mild neural foraminal narrowing right-side C5-6 Dictated by: Dr. Rene Pearl MD 07/12/2019 13:[address] Rene Pearl MD in [place] 07/12/2019 13:05
== END ==
PROVIDERS: PCP Emergency Medicine; Referring Provider Emergency Medicine; Visit Provider Emergency Medicine
DX: M25.511 Pain in right shoulder (principal); M25.512 Pain in left shoulder
CPT/HCPCS: 72050

== ENCOUNTER → 2019-07-15 14:36 | Outpatient (CLI) | payer OTHER, SELFPAY ==
--- NOTE | 2019-07-15 14:38 | MR_ITS ---
PROCEDURE: MR CERVICAL SPINE WO CON CLINICAL INDICATION: radiating neck pain Neck pain and right shoulder pain, bilateral hand COMPARISON: Numbness TECHNIQUE: Standard multiplanar multiecho sequences are performed without contrast. 3-D MIP and myelographic images are also rendered and reviewed FINDINGS: There is slight reversal of the cervical lordosis. No malalignment is evident. The cranial cervical junction has an unremarkable appearance. C2-C3: Unremarkable. C3-C4: Unremarkable. C4-C5: There is degenerative disc disease with bulging disc and tiny left paracentral disc protrusion. C5-C6: Degenerate disc disease with bulging disc with canal stenosis of 10 mm. There is some minimal flattening of the cord anteriorly at this level. C6-C7: Degenerate disc disease with mild concentric bulging disc slightly eccentric toward the right with narrowing of the canal at 10 mm . C7-T1: Unremarkable. IMPRESSION: 1. C4-C5: There is degenerative disc disease with bulging disc and tiny left paracentral disc protrusion. 2. C5-C6: Degenerate disc disease with bulging disc with canal stenosis of 10 mm. There is some minimal flattening of the cord anteriorly at this level. 3. C6-C7: Degenerate disc disease with mild concentric bulging disc slightly eccentric toward the right with narrowing of the canal at 10 mm 4. No extruded herniated disc. Slight reversal cervical lordosis which could be due to patient positioning or muscle spasm. Dictated by: Cristofer Liao MD 07/17/2019 11:05 Electronically signed by Cristofer Liao MD in [place] 07/17/2019 11:05
== END ==
PROVIDERS: PCP Emergency Medicine; Visit Provider Emergency Medicine
DX: M50.90 Cervical disc disorder, unspecified, unspecified cervical region (principal)
CPT/HCPCS: 72141; 76376

== ENCOUNTER → 2019-08-07 09:11 | Outpatient (CLI) | payer OTHER, SELFPAY ==
--- NOTE | 2019-08-07 09:12 | MM_ITS ---
PROCEDURE: MM DIG SCREENING MAMM BI W/CAD CLINICAL INDICATION: screening There is a history of breast cancer patient's mother diagnosed after menopause. COMPARISON: DMSB DIG MAMM-SCREEN SHIRLENE from 03/18/2015 TECHNIQUE: Standard CC and MLO images were obtained. R2 CAD reviewed. FINDINGS: Moderate fibroglandular densities are seen in the subareolar regions of both breasts. There is a benign-appearing microcalcifications central portion right breast. There is no suspicious lesion and no suspicious microcalcifications. IMPRESSION: Mild to moderate breast density with no suspicious lesions seen BI-RAD Category: 2 Benign Finding(s) FOLLOW-UP: 1YR 1 Year Follow-up (A letter has been sent to the patient regarding results of the study.) Dictated by: Dr. Rene Pearl MD 08/10/2019 16:[address] Rene Pearl MD in [place] 08/10/2019 16:13
== END ==
PROVIDERS: PCP Emergency Medicine; Visit Provider Emergency Medicine
DX: Z12.31 Encounter for screening mammogram for malignant neoplasm of breast (principal)
CPT/HCPCS: 77067

== ENCOUNTER → 2019-09-16 16:27 | Outpatient (CLI) | payer OTHER, SELFPAY ==
[2019-09-16 18:41] LABS: Amphetamine/Metha Screen,Urine Negative ng/mL (<1000); Barbiturates Screen,Urine Negative ng/mL (<200); Benzodiazepines Screen,Urine Negative ng/mL (<200); Cannabinoid Screen,Urine Negative ng/mL (<50); Cocaine Screen,Urine Negative ng/mL (<300); Methadone Screen,Urine Negative ng/mL (<300); Opiate Screen,Urine Positive ng/mL (<300); Phencyclidine Screen,Urine Negative ng/mL (<25)
== END ==
PROVIDERS: Visit Provider Emergency Medicine
DX: Z79.899 Other long term (current) drug therapy (principal)
CPT/HCPCS: 80305

== ENCOUNTER → 2019-11-12 16:54 | Outpatient (CLI) | payer OTHER, SELFPAY ==
[2019-11-12 17:22] LABS: Basophils # 0.1 K/mm3 (0-0.2); Basophils % 0.5 % (0.1-2.0); Eosinophils # 0.3 K/mm3 (0.0-0.4); Eosinophils % 2.8 % (0.1-12.0); Hematocrit 45.5 % (37.0-47.0); Hemoglobin 14.9 g/dL (12.2-16.2); Lymphocytes # 2.8 K/mm3 (0.7-4.5); Lymphocytes % 24.9 % (10-50); Mean Corpuscular HGB Conc 32.8 g/dL (31.8-35.4); Mean Corpuscular Hemoglobin 29.7 pg (27.0-31.2); Mean Corpuscular Volume 90.5 fl (81-99); Mean Platelet Volume 8.5 fl (7.4-10.4); Monocytes # 0.6 K/mm3 (0.1-1.0); Monocytes % 5.4 % (1.7-9.3); Neutrophils # 7.4 K/mm3 (1.8-7.8); Neutrophils % 66.4 % (37.0-80.0); Platelet Count 322 K/mm3 (142-424); Red Blood Count 5.02 M/mm3 (4.20-5.40); Red Cell Distribution Width 12.8 % (11.5-17.5); White Blood Count 11.2 K/mm3 (4.8-10.8)
[2019-11-12 17:36] LABS: Alanine Aminotransferase 14 U/L (12-78); Albumin Level 4.4 g/dl (3.5-5.0); Albumin/Globulin Ratio 1.8 (1.1-1.8); Alkaline Phosphatase 65 U/L (38-126); Anion Gap 11.7 mEq/L (5-15); Aspartate Amino Transferase 26 U/L (14-36); Bilirubin,Total 0.4 mg/dl (0.2-1.3); Blood Urea Nitrogen 15 mg/dl (7-17); Calcium 10.2 mg/dl (8.4-10.2); Carbon Dioxide 29 mmol/L (22.0-30.0); Chloride 107 mmol/L (98-107); Estimated Glomerular Filt Rate 64 ml/min (>60); GFR (African American) 78 ML/MIN (>60); Globulin 2.5 g/dL (1.3-3.2); Glucose 106 mg/dl (74-100); Potassium 4.7 mmoL/L (3.5-5.1); Sodium 143 mmol/L (136-145); Total Protein,Serum 6.9 g/dl (6.3-8.2); Uric Acid 6.4 mg/dl (2.5-6.2)
[2019-11-12 19:47] LABS: Erythrocyte Sedimentation Rate 25 mm/hr (0-30)
[2019-11-14 11:25] LABS: RA Latex Turbid. <10.0 IU/mL (0.0-13.9)
[2019-11-14 15:29] LABS: Antinuclear Antibodies, IFA Negative (.)
== END ==
PROVIDERS: Visit Provider Emergency Medicine
DX: R06.00 Dyspnea, unspecified (principal)
CPT/HCPCS: 80053; 84550; 85025; 85651; 86038; 86431

== ENCOUNTER 2021-05-22 18:29 | Emergency (ER) | payer OTHER, SELFPAY ==
[2021-05-22 19:40] VITALS: BP 157/87; PULSE 86; RESP 18; TEMP 36.9; O2SAT 98; BMI 27.4
[2021-05-22 20:20] VITALS: BP 0/0; PULSE 0; RESP 0; TEMP -17.7; TEMP 0
== END 2021-05-22 20:21 | disposition left against medical advice (07) ==
LOC: UTC 18:31
PROVIDERS: Emergency Provider Nurse Practitioner Family; PCP Emergency Medicine
DX: Z53.21 Procedure and treatment not carried out due to patient leaving prior to being seen by health care provider (principal)

== ENCOUNTER → 2021-05-23 12:00 | Outpatient (CLI) | payer OTHER, SELFPAY | PROVIDERS: PCP Emergency Medicine; Visit Provider Nurse Practitioner | DX: Z20.822 Contact with and (suspected) exposure to COVID-19 (principal); U07.1 COVID-19 | CPT/HCPCS: C9803; U0003; U0005 ==

== ENCOUNTER → 2021-06-01 17:30 | Outpatient (CLI) | payer OTHER, SELFPAY ==
[2021-06-01 19:06] LABS: Basophils # 0.1 K/mm3 (0-0.2); Basophils % 0.9 % (0.1-2.0); Eosinophils # 0.3 K/mm3 (0.0-0.4); Eosinophils % 2.6 % (0.1-12.0); Hematocrit 47.8 % (37.0-47.0); Hemoglobin 15.6 g/dL (12.2-16.2); Lymphocytes # 3.8 K/mm3 (0.7-4.5); Lymphocytes % 33.1 % (10-50); Mean Corpuscular HGB Conc 32.6 g/dL (31.8-35.4); Mean Corpuscular Hemoglobin 30.2 pg (27.0-31.2); Mean Corpuscular Volume 92.6 fl (81-99); Mean Platelet Volume 8.8 fl (7.4-10.4); Monocytes # 0.6 K/mm3 (0.1-1.0); Monocytes % 5.6 % (1.7-9.3); Neutrophils # 6.6 K/mm3 (1.8-7.8); Neutrophils % 57.9 % (37.0-80.0); Platelet Count 373 K/mm3 (142-424); Red Blood Count 5.16 M/mm3 (4.20-5.40); Red Cell Distribution Width 13.7 % (11.5-17.5); White Blood Count 11.4 K/mm3 (4.8-10.8)
[2021-06-01 19:09] LABS: Alanine Aminotransferase 18 U/L (12-78); Albumin Level 4.1 g/dl (3.5-5.0); Albumin/Globulin Ratio 1.6 (1.1-1.8); Alkaline Phosphatase 89 U/L (38-126); Aspartate Amino Transferase 29 U/L (14-36); Bilirubin,Total 0.3 mg/dl (0.2-1.3); Blood Urea Nitrogen 12 mg/dl (7-17); Calcium 9.6 mg/dl (8.4-10.2); Carbon Dioxide 26 mmol/L (22.0-30.0); Chloride 110 mmol/L (98-107); Cholesterol 216 mg/dl (140-200); Estimated Glomerular Filt Rate 64 ml/min (>60); GFR (African American) 78 ML/MIN (>60); Globulin 2.6 g/dL (1.3-3.2); Glucose 126 mg/dl (74-100); HDL Cholesterol 43 mg/dl (40-60); Sodium 144 mmol/L (136-145); Total Protein,Serum 6.7 g/dl (6.3-8.2); Triglycerides 355 mg/dl (30-150); VLDL Cholesterol 71 mg/dL (0-40)
[2021-06-01 19:20] LABS: Direct LDL Cholesterol 114.28 mg/dL (100-129)
[2021-06-01 19:40] LABS: Thyroid Stimulating Hormone 5.02 uIU/mL (0.465-4.68)
[2021-06-01 19:42] LABS: Erythrocyte Sedimentation Rate 12 mm/hr (0-30)
[2021-06-01 19:45] LABS: Amphetamine/Metha Screen,Urine Negative ng/ml (<1000)
[2021-06-01 19:46] LABS: Barbiturates Screen,Urine Negative ng/ml (<200)
[2021-06-01 19:47] LABS: Benzodiazepines Screen,Urine Negative ng/ml (<200)
[2021-06-01 19:48] LABS: Cannabinoid Screen,Urine Negative ng/ml (<50)
[2021-06-01 19:49] LABS: Cocaine Screen,Urine Negative ng/ml (<300); Methadone Screen,Urine Negative ng/ml (<300)
[2021-06-01 19:50] LABS: Opiate Screen,Urine Negative ng/ml (<300); Phencyclidine Screen,Urine Negative ng/ml (<25)
[2021-06-01 20:14] LABS: 25-OH Vitamin D, Total 25.2 ng/mL (30-100)
[2021-06-01 20:15] LABS: Free T4 (Free Thyroxine) 0.93 ng/dl (0.78-2.19)
[2021-06-04 05:49] LABS: ALT (SGPT) P5P 17 IU/L (0-40); Alpha 2-Macroglobulins, Qn 153 mg/dL (110-276); Apolipoprotein A-1 124 mg/dL (116-209); Bilirubin, Total 0.1 mg/dL (0.0-1.2); Fibrosis Score 0.04 (0.00-0.21); GGT 27 IU/L (0-60); Haptoglobin 236 mg/dL (33-346); Necroinflammat Activity Grade A0-No activity (.); Necroinflammat Activity Score 0.04 (0.00-0.17)
[2021-06-04 08:51] LABS: HIV Screen 4th Generation wRfx Non Reactive (Non Reactive)
== END ==
PROVIDERS: Visit Provider Emergency Medicine
DX: I25.5 Ischemic cardiomyopathy (principal); I10 Essential (primary) hypertension; R20.0 Anesthesia of skin; E55.9 Vitamin D deficiency, unspecified; Z79.899 Other long term (current) drug therapy; Z11.4 Encounter for screening for human immunodeficiency virus [HIV]; F17.210 Nicotine dependence, cigarettes, uncomplicated
CPT/HCPCS: 80053; 80061; 80305; 81596; 82306; 84439; 84443; 85025; 85651; 86703; 86704; 86706; 86708; 87340; 87380; 87522; G0432

== ENCOUNTER 2021-06-20 10:58 | Outpatient (RCR) | payer OTHER, SELFPAY ==
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
== END 2021-06-20 10:59 | disposition home or self-care (01) ==
LOC: PT 10:58
PROVIDERS: PCP Emergency Medicine; Visit Provider Emergency Medicine
DX: M54.2 Cervicalgia (principal); M54.9 Dorsalgia, unspecified
CPT/HCPCS: 97163

== ENCOUNTER → 2021-06-20 13:05 | Outpatient (CLI) | payer OTHER, SELFPAY ==
--- NOTE | 2021-06-20 13:06 | MR_ITS ---
PROCEDURE: MR CERVICAL SPINE WO CON CLINICAL INDICATION: neck pain Neck pain and bilateral arm pain for 2 months. No injury or trauma. COMPARISON: MR MR CERVICAL SPINE WO CON from 07/15/2019 TECHNIQUE: Standard multiplanar multiecho sequences are performed without contrast. 3-D MIP and myelographic images are also rendered and reviewed FINDINGS: At C4-5 there is a stable tiny left paracentral disc protrusion. At C5-6 there is disc osteophyte complex producing moderate bilateral neuroforaminal stenosis. At C6-7 there is moderate left neural foraminal stenosis from disc osteophyte complex. There is no other significant disease. There is mild canal stenosis at C4-5 C5-6 and C6-7 which has progressed slightly since prior study. IMPRESSION: 1. Tiny stable left paracentral disc protrusion at C4-5. 2. Moderate bilateral neural foraminal stenosis at C5-6. 3. Moderate left neural foraminal stenosis at C6-7. 4. Mild canal stenosis at C4-5, C5-6, and C6-7, progressed slightly since prior study. Dictated by: Bridget Santiago MD 06/21/2021 14:50 Bridget Santiago MD in [place] 06/21/2021 14:50
--- NOTE | 2021-06-20 13:06 | MR_ITS ---
PROCEDURE: MR LUMBAR SPINE WO CON CLINICAL INDICATION: back pain Low back pain worse on right side. Bilateral hip, buttock, and leg pain. Numbness on lateral aspect of leg and foot. Symptoms for 5 months. COMPARISON: MR MR CERVICAL SPINE WO CON from 07/15/2019 TECHNIQUE: Standard multiplanar multiecho sequences are performed without contrast. 3-D MIP and myelographic images are also rendered and reviewed FINDINGS: At L1-2, there is no significant canal or neural foraminal stenosis. At L2-3, there is no significant canal or neural foraminal stenosis. At L3-4, there is no significant canal stenosis however there is a diffuse disc bulge producing mild bilateral neural foraminal stenosis. At L4-5, there is a tiny central disc protrusion and a diffuse disc bulge without canal stenosis however producing moderate impingement on bilateral nerve roots at this level. There is also a small disc extrusion in the right paracentral region at this level which has migrated caudally and is in the lateral recess on the right. There is no other canal or neuroforaminal stenosis. IMPRESSION: 1. Mild bilateral neuroforaminal stenosis at L3-4 due to diffuse disc bulge. 2. Moderate bilateral neuroforaminal stenosis at L4-5 due to diffuse disc bulge. 3. Extruded L4-5 disc fragment migrated caudally within the right lateral recess. Dictated by: Bridgte Santiago MD 06/21/2021 15:05 Bridget Santiago MD in [place] 06/21/2021 15:05
== END ==
PROVIDERS: PCP Emergency Medicine; Visit Provider Emergency Medicine
DX: M54.2 Cervicalgia (principal); M54.9 Dorsalgia, unspecified
CPT/HCPCS: 72141; 72148; 76376

== ENCOUNTER → 2021-08-10 14:54 | Outpatient (CLI) | payer OTHER, SELFPAY ==
[2021-08-10 16:45] LABS: Benzodiazepines Screen,Urine Negative ng/ml (<200)
[2021-08-10 16:46] LABS: Amphetamine/Metha Screen,Urine Negative ng/ml (<1000); Barbiturates Screen,Urine Negative ng/ml (<200)
[2021-08-10 16:47] LABS: Cannabinoid Screen,Urine Negative ng/ml (<50); Methadone Screen,Urine Negative ng/ml (<300)
[2021-08-10 16:48] LABS: Cocaine Screen,Urine Negative ng/ml (<300)
[2021-08-10 16:49] LABS: Opiate Screen,Urine Negative ng/ml (<300); Phencyclidine Screen,Urine Negative ng/ml (<25)
== END ==
PROVIDERS: Visit Provider Nurse Practitioner Family
DX: Z79.899 Other long term (current) drug therapy (principal)
CPT/HCPCS: 80305

== ENCOUNTER → 2021-09-07 17:47 | Outpatient (CLI) | payer OTHER, SELFPAY ==
[2021-09-07 19:31] LABS: Amphetamine/Metha Screen,Urine Negative ng/ml (<1000)
[2021-09-07 19:34] LABS: Cannabinoid Screen,Urine Negative ng/ml (<50)
[2021-09-07 19:35] LABS: Barbiturates Screen,Urine Negative ng/ml (<200)
[2021-09-07 19:36] LABS: Benzodiazepines Screen,Urine Negative ng/ml (<200)
[2021-09-07 19:41] LABS: Cocaine Screen,Urine Negative ng/ml (<300)
[2021-09-07 19:42] LABS: Methadone Screen,Urine Negative ng/ml (<300)
[2021-09-07 19:43] LABS: Opiate Screen,Urine Negative ng/ml (<300); Phencyclidine Screen,Urine Negative ng/ml (<25)
== END ==
PROVIDERS: Visit Provider Emergency Medicine
DX: M48.02 Spinal stenosis, cervical region (principal)
CPT/HCPCS: 80305

== ENCOUNTER → 2021-10-24 13:41 | Outpatient (CLI) | payer OTHER, SELFPAY ==
--- NOTE | 2021-10-24 13:41 | CA_ITS ---
APPROVED REPORT EXAM: Comprehensive 2D, Doppler, and color-flow Echocardiogram Inventory Management Specialist: Nicolette Almaraz, THANIA, RVS Ht: 5 ft 4 in Wt: 171lbs BSA: 1.83 BP: 123/84 mmHg Indications: CAD, CM, HTN, HLD, VARGAS, Smoker 2D Dimensions LVDd 5.13 cm LVEF (Visual) 56.00 % LVDs 3.62 cm LA Volume 52.10 mL Aortic Root 2.48 cm LA Volume Index 28.50 mL/m2 (M/F) 16-34 Left Atrium 2.61 cm LVOT 2.04 cm (M/F) 1.5-2.5 M-Mode Dimensions RVDd 2.05 cm (0.9-2.6) LA Diam 3.45 cm (1.9-4.0) LVDd 5.44 cm (3.5-5.7) Ao Diam 2.64 cm (2.0-3.7) LVDs 3.94 cm (3.5-5.7) IVSd 0.87 cm (0.6-1.1) PWd 0.72 cm (0.6-1.1) EF (Teich) 54.20% EPSs 1.45 cm FS 28.40% EDV (Teich) 147.40 mL TAPSE 1.43 (<1.7) ESV (Teich) 67.50 mL LV Diastology E Decel Time 303.00 (160-240 msec) E/A Ratio 0.78 MED E' 5.80 (< 7 cm/sec) MED A' 7.10 cm/s E'/MED E' Ratio 11.31 (>14) LAT E' 7.60 (<10 cm/sec) LAT A' 6.80 cm/s E/LAT E' Ratio 8.63 (>14) Pulm Vein s 30.00 cm/sec Pulm Vein d 24.00 cm/sec Ar-A Duration 97.00 msec Aortic Valve LVOT Max 114.00 (70-110 cm/s) LVOT VTI 23.22 cm AoV Peak Nato. 175.00 (50-130 cm/s) AO Peak GR. 12.30 mmHg AO Mean GR. 6.20 (<5 mmHg) AO VTI 34.45 (18-25 cm) ROBINSON (VTI) 2.20 (2.5-4.5 cm2) Mitral Valve MV A Velocity 84.00 (40-130 cm/s) E/A Ratio 0.78 MV Decel. Time 303.00 (160-240 ms) Pulmonary Valve PV Peak Velocity 87.00 (50-150 cm/s) Left Ventricle Left atrium is mildly enlarged, left ventricle is normal size, mild concentric left ventricular hypertrophy, visually estimated ejection fraction 55% with no regional wall motion abnormality, grade 1 diastolic dysfunction seen without tissue Doppler evidence of raise left atrial pressure. Right Ventricle Right atrium and right ventricle mildly enlarged with normal contractility. Aortic Valve Aortic valve is minimally thickened and fibrosed, there is no aortic stenosis or aortic insufficiency. Mitral Valve Mitral valve leaflets are minimally thickened, there is mild mitral regurgitation. Tricuspid Valve Tricuspid valve grossly normal, there is mild tricuspid regurgitation, tricuspid regurgitation jet velocity is inadequate for calculation of the right ventricular systolic pressure. Pulmonic Valve Pulmonic valve is poorly visualized. Great Vessels Aortic root is normal size. Inferior vena cava is poorly visualized. Pericardium No significant pericardial effusion noted. Conclusion 1. Mild biatrial enlargement, normal left ventricular size, mild concentric left ventricular hypertrophy, visually estimated ejection fraction 55% with no regional wall motion abnormality, grade 1 diastolic dysfunction seen without tissue Doppler evidence of raise left atrial pressure. 2. Mildly enlarged right ventricle with normal contractility. 3. Mild mitral and tricuspid regurgitation. 4. No significant pericardial effusion. 5. Inferior vena cava is poorly visualized. Electronically signed by : Tim Carl MD 10/24/2021 19:13:59
== END ==
PROVIDERS: PCP Emergency Medicine; Visit Provider Nurse Practitioner Family
DX: R06.00 Dyspnea, unspecified (principal); I25.118 Atherosclerotic heart disease of native coronary artery with other forms of angina pectoris; I10 Essential (primary) hypertension; E78.2 Mixed hyperlipidemia
CPT/HCPCS: 93306

== ENCOUNTER → 2021-11-02 15:37 | Outpatient (CLI) | payer OTHER, SELFPAY | PROVIDERS: Visit Provider Emergency Medicine | DX: Z79.899 Other long term (current) drug therapy (principal) | CPT/HCPCS: 80305 ==

== ENCOUNTER → 2021-12-30 13:15 | Outpatient (CLI) | payer OTHER, SELFPAY ==
[2021-12-30 17:17] LABS: Amphetamine/Metha Screen,Urine Negative ng/ml (<1000)
[2021-12-30 17:18] LABS: Barbiturates Screen,Urine Negative ng/ml (<200); Benzodiazepines Screen,Urine Negative ng/ml (<200)
[2021-12-30 17:19] LABS: Cannabinoid Screen,Urine Negative ng/ml (<50); Cocaine Screen,Urine Negative ng/ml (<300)
[2021-12-30 17:20] LABS: Methadone Screen,Urine Negative ng/ml (<300)
[2021-12-30 17:21] LABS: Opiate Screen,Urine Negative ng/ml (<300); Phencyclidine Screen,Urine Negative ng/ml (<25)
== END ==
PROVIDERS: PCP Emergency Medicine; Visit Provider Emergency Medicine
DX: M50.30 Other cervical disc degeneration, unspecified cervical region (principal)
CPT/HCPCS: 80305

== ENCOUNTER → 2022-02-27 08:06 | Outpatient (CLI) | payer OTHER, SELFPAY ==
[2022-02-24 19:42] LABS: Amphetamine/Metha Screen,Urine Negative ng/ml (<1000)
[2022-02-24 19:44] LABS: Barbiturates Screen,Urine Negative ng/ml (<200); Benzodiazepines Screen,Urine Negative ng/ml (<200)
[2022-02-24 19:45] LABS: Cannabinoid Screen,Urine Negative ng/ml (<50)
[2022-02-24 19:46] LABS: Cocaine Screen,Urine Negative ng/ml (<300); Methadone Screen,Urine Negative ng/ml (<300)
[2022-02-24 19:47] LABS: Opiate Screen,Urine Negative ng/ml (<300)
[2022-02-24 19:49] LABS: Phencyclidine Screen,Urine Negative ng/ml (<25)
== END ==
PROVIDERS: Visit Provider Emergency Medicine
DX: Z79.899 Other long term (current) drug therapy (principal)
CPT/HCPCS: 80305

== ENCOUNTER → 2022-04-24 06:06 | Outpatient (CLI) | payer OTHER, SELFPAY ==
[2022-04-24 20:17] LABS: Amphetamine/Metha Screen,Urine Negative ng/ml (<1000)
[2022-04-24 20:18] LABS: Barbiturates Screen,Urine Negative ng/ml (<200)
[2022-04-24 20:20] LABS: Benzodiazepines Screen,Urine Negative ng/ml (<200)
[2022-04-24 20:21] LABS: Cannabinoid Screen,Urine Negative ng/ml (<50); Cocaine Screen,Urine Negative ng/ml (<300)
[2022-04-24 20:22] LABS: Methadone Screen,Urine Negative ng/ml (<300); Opiate Screen,Urine Negative ng/ml (<300)
[2022-04-24 20:23] LABS: Phencyclidine Screen,Urine Negative ng/ml (<25)
== END ==
PROVIDERS: PCP Emergency Medicine; Visit Provider Emergency Medicine
DX: M50.30 Other cervical disc degeneration, unspecified cervical region (principal)
CPT/HCPCS: 80305

== ENCOUNTER → 2022-05-23 11:36 | Outpatient (CLI) | payer OTHER, SELFPAY | PROVIDERS: PCP Emergency Medicine; Visit Provider Internal Medicine Gastroenterology | DX: Z01.818 Encounter for other preprocedural examination (principal); Z20.822 Contact with and (suspected) exposure to COVID-19 | CPT/HCPCS: C9803; U0003; U0005 ==

== ENCOUNTER → 2022-06-23 17:05 | Outpatient (CLI) | payer OTHER, SELFPAY ==
[2022-06-23 16:41] LABS: Amphetamine/Metha Screen,Urine Negative ng/ml (<1000)
[2022-06-23 16:42] LABS: Barbiturates Screen,Urine Negative ng/ml (<200)
[2022-06-23 16:43] LABS: Benzodiazepines Screen,Urine Negative ng/ml (<200); Cocaine Screen,Urine Negative ng/ml (<300)
[2022-06-23 16:44] LABS: Cannabinoid Screen,Urine Negative ng/ml (<50); Methadone Screen,Urine Negative ng/ml (<300)
[2022-06-23 16:46] LABS: Phencyclidine Screen,Urine Negative ng/ml (<25)
[2022-06-23 17:02] LABS: Opiate Screen,Urine Negative ng/ml (<300)
== END ==
PROVIDERS: PCP Emergency Medicine; Visit Provider Emergency Medicine
DX: Z79.899 Other long term (current) drug therapy (principal)
CPT/HCPCS: 80305

== ENCOUNTER → 2022-08-21 10:30 | Outpatient (CLI) | payer OTHER, SELFPAY ==
[2022-08-21 19:28] LABS: Amphetamine/Metha Screen,Urine Negative ng/ml (<1000); Barbiturates Screen,Urine Negative ng/ml (<200)
[2022-08-21 19:29] LABS: Benzodiazepines Screen,Urine Negative ng/ml (<200)
[2022-08-21 19:30] LABS: Cannabinoid Screen,Urine Negative ng/ml (<50)
[2022-08-21 19:31] LABS: Cocaine Screen,Urine Negative ng/ml (<300)
[2022-08-21 19:33] LABS: Phencyclidine Screen,Urine Negative ng/ml (<25)
[2022-08-21 19:47] LABS: Methadone Screen,Urine Negative ng/ml (<300)
[2022-08-21 19:50] LABS: Opiate Screen,Urine Negative ng/ml (<300)
== END ==
PROVIDERS: PCP Emergency Medicine; Visit Provider Emergency Medicine
DX: Z79.899 Other long term (current) drug therapy (principal)
CPT/HCPCS: 80305

== ENCOUNTER → 2022-10-01 10:53 | Outpatient (CLI) | payer OTHER, SELFPAY ==
--- NOTE | 2022-10-01 10:59 | XR_ITS ---
PROCEDURE INFORMATION: Exam: XR Right Ankle Exam date and time: 10/01/2022 10:56 AM Age: 62 years old Clinical indication: Injury or trauma; Fall; Swelling (edema); Ankle; Right; Additional info: Injury to RT ankle- right lateral malleolus pain and swelling TECHNIQUE: Imaging protocol: Radiologic exam of the Right ankle. Views: 3 or more views. COMPARISON: No relevant prior studies available. FINDINGS: Bones/joints: Nondisplaced transverse lateral malleolar fracture. Soft tissues: Normal. IMPRESSION: Lateral malleolar fracture.
== END ==
PROVIDERS: PCP Emergency Medicine; Visit Provider Emergency Medicine
DX: M25.571 Pain in right ankle and joints of right foot (principal); S99.911A Unspecified injury of right ankle, initial encounter
CPT/HCPCS: 73610

== ENCOUNTER 2022-10-03 13:24 | Outpatient (RCR) | payer OTHER, SELFPAY | END 2022-10-03 15:00 | disposition home or self-care (01) | LOC: PT 13:24 | PROVIDERS: Visit Provider Orthopaedic Surgery | DX: S82.891A Other fracture of right lower leg, initial encounter for closed fracture (principal) | CPT/HCPCS: 97760 ==

== ENCOUNTER → 2022-10-18 11:00 | Outpatient (CLI) | payer OTHER, SELFPAY ==
[2022-10-18 15:21] LABS: Amphetamine/Metha Screen,Urine Negative ng/ml (<1000); Barbiturates Screen,Urine Negative ng/ml (<200)
[2022-10-18 15:22] LABS: Benzodiazepines Screen,Urine Negative ng/ml (<200); Cannabinoid Screen,Urine Negative ng/ml (<50)
[2022-10-18 15:23] LABS: Cocaine Screen,Urine Negative ng/ml (<300)
[2022-10-18 15:24] LABS: Methadone Screen,Urine Negative ng/ml (<300); Opiate Screen,Urine Negative ng/ml (<300)
[2022-10-18 15:25] LABS: Phencyclidine Screen,Urine Negative ng/ml (<25)
== END ==
PROVIDERS: PCP Emergency Medicine; Visit Provider Emergency Medicine
DX: Z79.899 Other long term (current) drug therapy (principal)
CPT/HCPCS: 80305

== ENCOUNTER → 2022-10-26 13:04 | Outpatient (CLI) | payer OTHER, SELFPAY ==
--- NOTE | 2022-10-26 13:07 | XR_ITS ---
FINAL REPORT CLINICAL HISTORY: ankle fracture follow up COMPARISON: 10/01/2022 FINDINGS: AP, oblique, and lateral views of the right ankle were obtained. There has been interval healing of the previously seen fracture of the tip of the lateral malleolus. No new fracture is identified. There is degenerative disease. Soft tissues are normal. IMPRESSION: Interval healing of fracture of the tip of the lateral malleolus. Reviewed, Interpreted and Dictated by Nellie Olea MD Transcribed by Saima Mcpherson Authenticated and [facility]
== END ==
PROVIDERS: PCP Emergency Medicine; Visit Provider Orthopaedic Surgery
DX: S82.891A Other fracture of right lower leg, initial encounter for closed fracture (principal)
CPT/HCPCS: 73610

== ENCOUNTER → 2022-11-10 12:25 | Outpatient (CLI) | payer OTHER, SELFPAY ==
--- NOTE | 2022-11-10 12:42 | CA_ITS ---
FINAL REPORT TECHNIQUE: Color Doppler, duplex Doppler and rachel scale sonography of the bilateral neck arterial vasculature was performed. Velocities were measured in the carotid arteries. Stenosis evaluation based on the validated velocity criteria. CLINICAL HISTORY: CAD,HTN,HLD,SMOKER FINDINGS: The peak systolic velocity of the right common carotid artery is 104 cm/s. The peak systolic velocity of the right internal carotid artery is 80 cm/s and end diastolic velocity 28 cm/s. The ICA/CCA ratio is 0.77. A mild amount of plaque is present. The right external carotid artery is patent. The right vertebral artery is patent with antegrade flow. The peak systolic velocity of the left common carotid artery is 91 cm/s. The peak systolic velocity of the left internal carotid artery is 82 cm/s and end diastolic velocity 26 cm/s. The ICA/CCA ratio is 0.90. A mild amount of plaque is present. The left external carotid artery is patent.The left vertebral artery is patent with antegrade flow. IMPRESSION: Less than 50% bilateral carotid stenoses. Bilateral patent vertebral arteries with antegrade flow. If indicated, CTA or MRA could further evaluate. Reviewed, Interpreted and Dictated by Jomar Spivey III, MD Transcribed by Saima Mcpherson Authenticated and [facility]
== END ==
PROVIDERS: PCP Emergency Medicine; Visit Provider Physician Assistant
DX: R06.00 Dyspnea, unspecified (principal); R06.01 Orthopnea; R06.02 Shortness of breath; I25.10 Atherosclerotic heart disease of native coronary artery without angina pectoris; I25.5 Ischemic cardiomyopathy; I10 Essential (primary) hypertension; E78.2 Mixed hyperlipidemia; F17.200 Nicotine dependence, unspecified, uncomplicated
CPT/HCPCS: 93880

== ENCOUNTER → 2022-11-16 08:52 | Outpatient (CLI) | payer OTHER, SELFPAY ==
--- NOTE | 2022-11-16 08:55 | XR_ITS ---
FINAL REPORT CLINICAL HISTORY: right ankle fracture COMPARISON: 10/26/2022 FINDINGS: RIGHT ANKLE Three views of the right ankle were obtained. The previously questioned fracture at the tip of the lateral malleolus appears stable. There is no acute fracture or dislocation. The joint spaces and mortise are intact. There is no soft tissue abnormality. IMPRESSION: Stable appearing fracture of the tip of the lateral malleolus. Reviewed, Interpreted and Dictated by Mo Stein MD Transcribed by Saima Mcpherson Authenticated and [facility]
[2022-11-16 10:27] LABS: Alanine Aminotransferase 24 U/L (12-78); Albumin Level 4.4 g/dl (3.5-5.0); Alkaline Phosphatase 75 U/L (38-126); Aspartate Amino Transferase 30 U/L (14-36); Bilirubin,Direct 0.3 mg/dl (0.0-0.4); Bilirubin,Total 0.3 mg/dl (0.2-1.3); Bilirubin,Unconjugated 0.1 mg/dL (0.0-1.1); Chol/HDL Ratio 5.6 (1-3.5); Cholesterol 286 mg/dl (140-200); HDL Cholesterol 51 mg/dl (40-60)
[2022-11-16 10:38] LABS: Direct LDL Cholesterol 107.71 mg/dL (100-129); Triglycerides 1144 mg/dl (30-150)
== END ==
PROVIDERS: PCP Physician Assistant; Visit Provider Physician Assistant Surgical
DX: S82.891A Other fracture of right lower leg, initial encounter for closed fracture (principal); E78.2 Mixed hyperlipidemia; I10 Essential (primary) hypertension; I25.10 Atherosclerotic heart disease of native coronary artery without angina pectoris; R06.00 Dyspnea, unspecified
CPT/HCPCS: 36415; 73610; 80061; 80076

== ENCOUNTER → 2022-12-13 23:16 | Outpatient (CLI) | payer OTHER, SELFPAY ==
[2022-12-13 19:30] LABS: Barbiturates Screen,Urine Negative ng/ml (<200)
[2022-12-13 19:31] LABS: Amphetamine/Metha Screen,Urine Negative ng/ml (<1000)
[2022-12-13 19:32] LABS: Benzodiazepines Screen,Urine Negative ng/ml (<200)
[2022-12-13 19:33] LABS: Cannabinoid Screen,Urine Negative ng/ml (<50); Cocaine Screen,Urine Negative ng/ml (<300)
[2022-12-13 19:34] LABS: Methadone Screen,Urine Negative ng/ml (<300); Opiate Screen,Urine Negative ng/ml (<300)
[2022-12-13 19:35] LABS: Phencyclidine Screen,Urine Negative ng/ml (<25)
== END ==
PROVIDERS: PCP Emergency Medicine; Visit Provider Emergency Medicine
DX: Z79.899 Other long term (current) drug therapy (principal)
CPT/HCPCS: 80305

== ENCOUNTER → 2023-02-06 23:23 | Outpatient (CLI) | payer OTHER, SELFPAY ==
[2023-02-06 19:10] LABS: Amphetamine/Metha Screen,Urine Negative ng/ml (<1000)
[2023-02-06 19:11] LABS: Barbiturates Screen,Urine Negative ng/ml (<200)
[2023-02-06 19:12] LABS: Benzodiazepines Screen,Urine Negative ng/ml (<200); Cannabinoid Screen,Urine Negative ng/ml (<50)
[2023-02-06 19:13] LABS: Cocaine Screen,Urine Negative ng/ml (<300); Methadone Screen,Urine Negative ng/ml (<300)
[2023-02-06 19:14] LABS: Opiate Screen,Urine Positive ng/ml (<300)
[2023-02-06 19:15] LABS: Phencyclidine Screen,Urine Negative ng/ml (<25)
== END ==
PROVIDERS: PCP Emergency Medicine; Visit Provider Emergency Medicine
DX: M48.061 Spinal stenosis, lumbar region without neurogenic claudication (principal)
CPT/HCPCS: 80305

== ENCOUNTER → 2023-04-06 14:20 | Outpatient (CLI) | payer OTHER, SELFPAY ==
[2023-04-06 11:59] LABS: Amphetamine/Metha Screen,Urine Negative ng/ml (<1000)
[2023-04-06 12:00] LABS: Barbiturates Screen,Urine Negative ng/ml (<200)
[2023-04-06 12:01] LABS: Benzodiazepines Screen,Urine Negative ng/ml (<200); Cannabinoid Screen,Urine Negative ng/ml (<50)
[2023-04-06 12:02] LABS: Cocaine Screen,Urine Negative ng/ml (<300); Methadone Screen,Urine Negative ng/ml (<300)
[2023-04-06 12:03] LABS: Opiate Screen,Urine Positive ng/ml (<300)
[2023-04-06 12:04] LABS: Phencyclidine Screen,Urine Negative ng/ml (<25)
== END ==
PROVIDERS: PCP Emergency Medicine; Visit Provider Emergency Medicine
DX: M50.30 Other cervical disc degeneration, unspecified cervical region (principal)
CPT/HCPCS: 80305

== ENCOUNTER → 2023-06-04 08:02 | Outpatient (CLI) | payer OTHER, SELFPAY ==
[2023-06-04 08:52] LABS: Basophils # 0.1 K/mm3 (0-0.2); Basophils % 0.8 % (0.1-2.0); Eosinophils # 0.2 K/mm3 (0.0-0.4); Eosinophils % 2.2 % (0.1-12.0); Hematocrit 45.2 % (37.0-47.0); Hemoglobin 14.9 g/dL (12.2-16.2); Lymphocytes % 26.4 % (10-50); Mean Corpuscular Hemoglobin 29.7 pg (27.0-31.2); Mean Corpuscular Volume 89.9 fl (81-99); Mean Platelet Volume 8.4 fl (7.4-10.4); Monocytes # 0.4 K/mm3 (0.1-1.0); Monocytes % 4.6 % (1.7-9.3); Neutrophils # 5.1 K/mm3 (1.8-7.8); Neutrophils % 66.1 % (37.0-80.0); Platelet Count 272 K/mm3 (142-424); Red Blood Count 5.03 M/mm3 (4.20-5.40); Red Cell Distribution Width 13.1 % (11.5-17.5); White Blood Count 7.7 K/mm3 (4.8-10.8)
[2023-06-04 10:07] LABS: Alanine Aminotransferase 28 U/L (12-78); Alkaline Phosphatase 67 U/L (38-126); Anion Gap 11.4 mEq/L (5-15); Aspartate Amino Transferase 29 U/L (14-36); Bilirubin,Direct 0.1 mg/dl (0.0-0.4); Bilirubin,Indirect 0.3 mg/dL (0.0-0.9); Bilirubin,Total 0.4 mg/dl (0.2-1.3); Bilirubin,Unconjugated 0.2 mg/dL (0.0-1.1); Blood Urea Nitrogen 19 mg/dl (7-17); Calcium 9.4 mg/dl (8.4-10.2); Carbon Dioxide 25 mmol/L (22.0-30.0); Chloride 110 mmol/L (98-107); Chol/HDL Ratio 6.1 (1-3.5); Cholesterol 231 mg/dl (140-200); Estimated Glomerular Filt Rate 73 ml/min (>60); GFR (African American) 88 ML/MIN (>60); Glucose 322 mg/dl (74-100); HDL Cholesterol 38 mg/dl (40-60); Potassium 4.4 mmoL/L (3.5-5.1); Sodium 142 mmol/L (136-145); Total Protein,Serum 6.7 g/dl (6.3-8.2)
[2023-06-04 10:17] LABS: Direct LDL Cholesterol 85.29 mg/dL (100-129); Triglycerides 618 mg/dl (30-150)
[2023-06-04 17:01] LABS: Hemoglobin A1C 8.1 % (4.0-6.0)
[2023-06-04 20:10] LABS: Amphetamine/Metha Screen,Urine Negative ng/ml (<1000)
[2023-06-04 20:11] LABS: Barbiturates Screen,Urine Negative ng/ml (<200); Benzodiazepines Screen,Urine Negative ng/ml (<200)
[2023-06-04 20:14] LABS: Cocaine Screen,Urine Positive ng/ml (<300); Methadone Screen,Urine Negative ng/ml (<300)
[2023-06-04 20:15] LABS: Cannabinoid Screen,Urine Negative ng/ml (<50)
[2023-06-04 20:16] LABS: Opiate Screen,Urine Positive ng/ml (<300); Phencyclidine Screen,Urine Negative ng/ml (<25)
== END ==
PROVIDERS: Physician Assistant; PCP Emergency Medicine; Visit Provider Nurse Practitioner
DX: I10 Essential (primary) hypertension (principal); E78.5 Hyperlipidemia, unspecified; E78.1 Pure hyperglyceridemia; Z79.899 Other long term (current) drug therapy
CPT/HCPCS: 36415; 80048; 80061; 80076; 80305; 83036; 85025

== ENCOUNTER → 2023-06-04 10:33 | Outpatient (CLI) | payer OTHER, SELFPAY | PROVIDERS: PCP Nurse Practitioner; Visit Provider Nurse Practitioner | DX: I25.10 Atherosclerotic heart disease of native coronary artery without angina pectoris (principal) ==

== ENCOUNTER → 2023-07-04 23:44 | Outpatient (CLI) | payer OTHER, SELFPAY ==
[2023-07-04 22:36] LABS: Phencyclidine Screen,Urine Negative ng/ml (<25)
[2023-07-04 22:47] LABS: Amphetamine/Metha Screen,Urine Negative ng/ml (<1000)
[2023-07-04 22:49] LABS: Barbiturates Screen,Urine Negative ng/ml (<200); Benzodiazepines Screen,Urine Positive ng/ml (<200)
[2023-07-04 22:50] LABS: Cannabinoid Screen,Urine Negative ng/ml (<50); Methadone Screen,Urine Negative ng/ml (<300)
[2023-07-04 22:51] LABS: Opiate Screen,Urine Positive ng/ml (<300)
[2023-07-04 22:52] LABS: Cocaine Screen,Urine Negative ng/ml (<300)
== END ==
PROVIDERS: PCP Emergency Medicine; Visit Provider Emergency Medicine
DX: Z79.899 Other long term (current) drug therapy (principal)
CPT/HCPCS: 80305

== ENCOUNTER → 2023-07-09 10:26 | Outpatient (CLI) | payer OTHER, SELFPAY ==
[2023-07-09 19:45] LABS: Amphetamine/Metha Screen,Urine Negative ng/ml (<1000)
[2023-07-09 19:46] LABS: Barbiturates Screen,Urine Negative ng/ml (<200)
[2023-07-09 19:47] LABS: Benzodiazepines Screen,Urine Negative ng/ml (<200); Cannabinoid Screen,Urine Negative ng/ml (<50)
[2023-07-09 19:48] LABS: Cocaine Screen,Urine Positive ng/ml (<300); Methadone Screen,Urine Negative ng/ml (<300)
[2023-07-09 19:49] LABS: Opiate Screen,Urine Negative ng/ml (<300)
[2023-07-09 19:50] LABS: Phencyclidine Screen,Urine Negative ng/ml (<25)
== END ==
PROVIDERS: PCP Emergency Medicine; Visit Provider Emergency Medicine
DX: Z79.899 Other long term (current) drug therapy (principal)
CPT/HCPCS: 80305

== ENCOUNTER → 2023-07-18 13:49 | Outpatient (CLI) | payer OTHER, SELFPAY ==
[2023-07-18 14:32] LABS: Amphetamine/Metha Screen,Urine Negative ng/ml (<1000)
[2023-07-18 14:33] LABS: Barbiturates Screen,Urine Negative ng/ml (<200)
[2023-07-18 14:34] LABS: Benzodiazepines Screen,Urine Negative ng/ml (<200); Cannabinoid Screen,Urine Negative ng/ml (<50)
[2023-07-18 14:35] LABS: Cocaine Screen,Urine Negative ng/ml (<300)
[2023-07-18 14:36] LABS: Methadone Screen,Urine Negative ng/ml (<300); Opiate Screen,Urine Negative ng/ml (<300)
[2023-07-18 14:37] LABS: Phencyclidine Screen,Urine Negative ng/ml (<25)
== END ==
PROVIDERS: PCP Emergency Medicine; Visit Provider Emergency Medicine
DX: Z79.899 Other long term (current) drug therapy (principal)
CPT/HCPCS: 80305

== ENCOUNTER → 2023-08-22 23:18 | Outpatient (CLI) | payer OTHER, SELFPAY ==
[2023-08-22 20:38] LABS: Amphetamine/Metha Screen,Urine Negative ng/ml (<1000); Barbiturates Screen,Urine Negative ng/ml (<200)
[2023-08-22 20:39] LABS: Benzodiazepines Screen,Urine Negative ng/ml (<200); Cannabinoid Screen,Urine Negative ng/ml (<50)
[2023-08-22 20:40] LABS: Cocaine Screen,Urine Negative ng/ml (<300)
[2023-08-22 20:41] LABS: Methadone Screen,Urine Negative ng/ml (<300); Opiate Screen,Urine Negative ng/ml (<300)
[2023-08-22 20:42] LABS: Phencyclidine Screen,Urine Negative ng/ml (<25)
== END ==
PROVIDERS: PCP Nurse Practitioner Family; Visit Provider Internal Medicine
DX: Z79.899 Other long term (current) drug therapy (principal)
CPT/HCPCS: 80305

== ENCOUNTER 2025-03-11 09:06 | Outpatient (CLI) | payer OTHER, SELFPAY ==
--- OUTSIDE RECORDS SUMMARY | 2025-03-11 09:10 | XMS_ITS | Clinical Summary ---
Author Organization Healthcare Address [address] [place] [address] Care Team Providers Care Customer Account Representative Name Role Phone Mehdi Hogan MD Primary Care Provider + [phone] Debra Wills APRN, DNP Unavailable [phone] Allergies Active Allergy Reactions Criticality Noted Date Comments Lisinopril Cough Low 03/28/2020 cough Medications ProAir HFA 108 (90 Base) MCG/ACT inhaler 01/27/2022 Act babatunde aspirin 81 MG EC tablet Take 81 mg by mouth. Active atorvastatin (Lipitor) 10 MG tablet Take 20 mg by mouth. Active diclofenac (Voltaren) 1 % topical gel 07/17/2022 Active furosemide (Lasix) 20 MG tablet Take 20 mg by mouth. Active gabapentin (Neurontin) 600 MG tablet 10/19/2022 Active HYDROcodone-acet aminophen ([place]) 10-325 MG tablet 10/19/2022 Active Lidoderm 5 % patch 05/11/2022 Active losartan (Cozaar) 25 MG tablet Take 25 mg by mouth. Active metoprolol tartrate (Lopressor) 25 MG tablet Take 12.5 mg by mouth. Active prasugrel (Effient) 10 MG tablet Take 10 mg by mouth 1 (one) time each day. 10/16/2022 Active promethazine-dex tromethorphan (Phenergan-DM) 6.25-15 MG/5ML syrup 10/18/2022 Active Active Problems Problem Noted Date Diagnosed Date Neck pain 08/28/2019 Family History Medical History Relation Name Comments Coronary artery disease Other 1 Heart attack Other 2 Relation Name Status Comments Other 1 Other 2 Social History Tobacco Use Types Packs/Day Years Used Date Smoking Tobacco: Every Day Cigarettes Smokeless Tobacco: Never Tobacco Cessation:Ready to Q uit: Not Asked; Counseling Given: Not Answered Alcohol Use Standard Drinks/Week Comments Never 0 (1 standard drink = 0.6 oz pur e alcohol) Comments Unknown Sex and Gender Information Value Date Recorded Sex Assigned at Not on file Legal Sex Female 8:26 PM EDT Gender Identity Not on file Sexual Orientation Not on file Last Filed Vital Signs Vital Sign Reading Time Taken Comments Blood Pressure 128/72 11/17/2022 8:13 AM EDT Pulse 70 11/17/2022 8:13 AM EDT Temperature - - Respiratory Rate - - Oxygen Saturation 96% 11/17/2022 8:13 AM EDT Inhaled Oxygen Concentration - - Weight 76.4 kg (168 lb 6.4 oz) 11/17/2022 8:13 A M EDT Height 162.6 cm (5' 4 ) 11/17/2022 8:13 AM EDT Body Mass Index 28.91 11/17/2022 8:13 AM EDT Plan of Treatment Health Maintenance Due Date Last Done Comments [facility]-Depression Screening 1961 [facility]-HIV Screening 1961 [facility]-Hepatitis C Screening 1961 [facility]-Infant/Child/Adol SDOH Screenings 1961 [facility]- SDOH Screenings 1979 [facility]-Adult SDOH Screenings 1979 [facility]-Pap Smear 1982 [facility]-Cervical Cancer Screening 1991 [facility]-HPV/Cotest 1991 CT Colonography 2006 Colonoscopy 2006 FIT-DNA 2006 FIT 2006 FOBT 2006 Sigmoidoscopy 2006 [facility]-Colorectal Cancer Screening 2006 [facility]-Breast Cancer Screening 2011 [facility]-Pneumococcal Vaccine: 50 + Years (1 of 1 - PCV) 2011 [facility]-Zoster Vaccines (1 of 2) 2011 [id number] Vaccine (3 - 2023- season) 2024 04/05/2021, 03/08/2021 [facility]-Influenza Vaccine (#1) 2025 [facility]-DTaP,Tdap,and Td Vaccine s (2 - Td or Tdap) 12/24/2026 12/24/2016 [facility]-RSV Vaccine: 60+ Years o r (1 - 1-dose 75+ series) 2036 [facility]-Obesity Intervention Completed 11/17/2022 HPV Vaccines Aged Out No longer eligi ble based on patient's age to complete this topic [facility]-HIB Vaccines Aged Out No longer e ligible based on patient's age to complete this topic [facility]-Hepatitis A Vaccines Aged Out No longer eligible based on patient's age to complete this topic [facility]-IPV Vaccines Aged Out No longer e ligible based on patient's age to complete this topic [facility]-Rotavirus Vaccines Aged Out No lo nger eligible based on patient's age to complete this topic Insurance [facility] MEDICA[facility] Care Teams Customer Account Representative Relationship Specialty Start Date End Date Mehdi Hogan MD [address] [place] [address] PCP - General 11/17/22 Debra Wills, MILANESE KNITTING MACHINE OPERATOR, DNP [id number] [place] [address] Nurse Practitioner Neurosurgery 11/17/22
--- OUTSIDE RECORDS SUMMARY | 2025-03-11 09:10 | XMS_ITS | Encounter Summary ---
Author Organization Healthcare Address [address] [place] [address] Care Team Providers Care Safety Technician Name Role Phone Mehdi Hogan MD Primary Care Provider [phone] Debra Wills APRN, DNP Unavailable + [phone] Encounter Details Date Type Department Care Team (Latest Contact Info) Description 09/07/2021 [facility] [address] [place] [address] Mehdi Hogan MD [address] [place] [address] Bulging of lumbar intervertebral disc (Primary Dx); Intervertebral disc stenosis of neural canal of cervical region Social History Tobacco Use Types Packs/Day Years Used Date Smoking Tobacco: Every Day Comments Unknown Sex and Gender Information Value Date Recorded Sex Assigned at Not on file Legal Sex Female 8:26 PM EDT Gender Identity Not on file Sexual Orientation Not on file documented as of this encounter Plan of Treatment Not on file documented as of this encounter Visit Diagnoses Diagnosis Bulging of lumbar intervertebral disc- Primary Intervertebral disc stenosis of neural canal of cervical region documented in this encounter Care Teams Safety Technician Relationship Specialty Start Date End Date Mehdi Hogan MD [address] [place] [address] PCP - General 11/17/22 Debra Wills APRN, ALTHEA [address] [place] [address] Nurse Practitioner Neurosurgery 11/17/22 documented as of this encounter
--- NOTE | 2025-03-11 09:11 | XR_ITS ---
FINAL REPORT CLINICAL HISTORY: right knee pain FINDINGS: RIGHT KNEE Three views were obtained. There is no fracture or dislocation. There is sclerosis of the medial femoral condyle with a small osteochondral lesion suspected. Mild diffuse degenerative changes are identified, greatest of the medial compartment. There is a sclerotic lesion in the distal femur centrally measuring up to 12 mm favored to represent a bone island. No soft tissue abnormality is identified. IMPRESSION: Degenerative changes, greatest in the medial compartment, slightly worse on the right. Small osteochondral lesion suspected of the medial femoral condyle. No acute findings. Reviewed, Interpreted and Dictated by Mariola Joseph MD Transcribed by Perla Powell Authenticated and [facility]
--- NOTE | 2025-03-11 09:11 | XR_ITS ---
FINAL REPORT CLINICAL HISTORY: left knee pain FINDINGS: LEFT KNEE Three views were obtained. There is no fracture or dislocation. There is moderate tricompartment degenerative change. Generalized osteopenia is noted. No soft tissue abnormality is identified. IMPRESSION: Moderate degenerative changes. Reviewed, Interpreted and Dictated by Mariola Joseph MD Transcribed by Perla Powell Authenticated and [facility]
== END 2025-03-11 23:59 | disposition home or self-care (01) ==
LOC: RAD 09:07
PROVIDERS: PCP Nurse Practitioner Family; Visit Provider Physician Assistant
DX: M17.0 Bilateral primary osteoarthritis of knee (principal); R93.6 Abnormal findings on diagnostic imaging of limbs
CPT/HCPCS: 73562

== ENCOUNTER 2025-03-16 16:11 | Outpatient (CLI) | payer OTHER, SELFPAY ==
--- OUTSIDE RECORDS SUMMARY | 2025-03-04 04:30 | XMS_ITS | Continuity of Care Document ---
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 regarding di et Related to Body mass index [BMI] 25.0-25.9, adult It is recommended to stop smoking/vaping to increase overall health and decrease risk of cardiovascular disease. If you wish to stop smoking/vaping, there is a free online [place] from smoking course offered through our local health department. You may call [phone] for more information. Related to Nicotine dependence, cigarettes, uncomplicated Keep area dry as pos sible. Use loose fitting clothing, and made of cotton. Take all medications as prescribed.F/u if not improved or resolved. Good glycemic control is also important in the management of yeast. Related to Recurrent vaginal candidiasis Patient currently do ing well. BP in goal range. No medication changes. Patient instructed to follow a low salt diet, continuing taking blood pressure medications as prescribed. Keep routine follow up with clinic. Related to Essential (primary) hypertension Take Nystatin as ins tructedBetter glycemic control is important to prevent recurrence of thrush/yeast Related to Oral thrush 15 minutes of sun ex posure daily to naturally raise vitamin D levelsContinue supplemental Vit DRecheck labs level today per your request (you will still need to return in 2 weeks for your routine labs and recheck of A1C). Related to Vitamin D deficiency B-12 injection given in office today-but you left prior to administration. Eat foods rich in B-12. Additional oral B12 replacement if indicated. Related to Vitamin B12 deficiency Patient educated on the importance of improved glycemic control. Counseled on diet, exercise and other lifestyle modifications. Monitor blood glucose and keep a log as instructed by checking fasting glucose in the AM and non fasting before bedtime with any additional checks as instructed. Patient instructed to bring glucose log to all scheduled appointments. Instructed on the importance of taking all medications as prescribed. Patient aware of the importance of diabetic eye exams, dental check ups, foot exams and diabetic foot care. Patient verbalized understanding. Related to Type 2 diabetes mellitus without complications A referral has been made to Dermatology on your behalf. Related to Epidermoid cyst Giving encouragement to exercise Related to Body mass index [BMI] 27.0-27.9, adult Lifestyle education regarding di et Related to Body mass index [BMI] 27.0-27.9, adult B-12 injection given in office today. Eat foods rich in B-12. Additional oral B12 replacement if indicated. Related to Vitamin B12 deficiency Patient educated on the importance of improved glycemic control. Counseled on diet, exercise and other lifestyle modifications. Monitor blood glucose and keep a log as instructed by checking fasting glucose in the AM and non fasting before bedtime with any additional checks as instructed. Patient instructed to bring glucose log to all scheduled appointments. Instructed on the importance of taking all medications as prescribed. Patient aware of the importance of diabetic eye exams, dental check ups, foot exams and diabetic foot care. Patient verbalized understanding. Related to Type 2 diabetes mellitus without complications Patient instructed o n appropriate use of medications prescribed for back pain. Discussed conservative measures such as heat, ice, gentle strength stretching, and core muscle strengthening. Avoid heavy lifting, pulling, or tugging. Contact the clinic if any worsening or new symptoms related to back pain occur. Related to Back pain Patient currently do ing well. BP in goal range. No medication changes. Patient instructed to follow a low salt diet, continuing taking blood pressure medications as prescribed. Keep routine follow up with clinic. Related to Essential (primary) hypertension Giving encouragement to exercise Related to Body mass index [BMI] 27.0-27.9, adult Lifestyle education regarding di et Related to Body mass index [BMI] 27.0-27.9, adult Low fat, low cholest gabriel diet. Avoid fatty, fried, and greasy foods. Physical activity as tolerated. Counseled on risks of associated comorbidities, such as heart disease and stroke. Encouraged avoidance of tobacco products. Related to Hyperlipidemia, unspecified Patient currently do ing well. BP in goal range. No medication changes. Patient instructed to follow a low salt diet, continuing taking blood pressure medications as prescribed. Keep routine follow up with clinic. Related to Essential (primary) hypertension Patient educated on the importance of improved glycemic control. Counseled on diet, exercise and other lifestyle modifications. Monitor blood glucose and keep a log as instructed by checking fasting glucose in the AM and non fasting before bedtime with any additional checks as instructed. Patient instructed to bring glucose log to all scheduled appointments. Instructed on the importance of taking all medications as prescribed. Patient aware of the importance of diabetic eye exams, dental check ups, foot exams and diabetic foot care. Patient verbalized understanding. Related to Type 2 diabetes mellitus without complications B-12 injection given in office today. Eat foods rich in B-12. Additional oral B12 replacement if indicated. Related to Vitamin B12 deficiency Giving encouragement to exercise Related to Body mass index [BMI] 27.0-27.9, adult Lifestyle education regarding di et Related to Body mass index [BMI] 27.0-27.9, adult Physical activity as tolerated. Try to engage in some form of moderate physical activity for 30 minutes most days of the week. May modify activity as needed to reduce discomfort. Try to achieve/maintain a healthy body weight to reduce strain on musculoskeletal system. Verbalizes an understanding. Related to Body mass index [BMI] 26.0-26.9, adult Low fat, low cholest gabriel diet. Avoid fatty, fried, and greasy foods. Physical activity as tolerated. Counseled on risks of associated comorbidities, such as heart disease and stroke. Encouraged avoidance of tobacco products. Related to Hyperlipidemia, unspecified Patient instructed o n appropriate use of medications prescribed for back pain. Discussed conservative measures such as heat, ice, gentle strength stretching, and core muscle strengthening. Avoid heavy lifting, pulling, or tugging. Contact the clinic if any worsening or new symptoms related to back pain occur. Related to Back pain Patient educated on the importance of improved glycemic control. Counseled on diet, exercise and other lifestyle modifications. Monitor blood glucose and keep a log as instructed by checking fasting glucose in the AM and non fasting before bedtime with any additional checks as instructed. Patient instructed to bring glucose log to all scheduled appointments. Instructed on the importance of taking all medications as prescribed. Patient aware of the importance of diabetic eye exams, dental check ups, foot exams and diabetic foot care. Patient verbalized understanding. Related to Type 2 diabetes mellitus without complications Giving encouragement to exercise Related to Body mass index [BMI] 26.0-26.9, adult Lifestyle education regarding di et Related to Body mass index [BMI] 26.0-26.9, adult Assessments Type Assessment Date assessment Body mass index [BMI] 25.0-25.9, adult assessment Back pain assessment Essential (primary) hypertension assessment Nicotine dependence, cigarettes, uncomplicated assessment Recurrent vaginal candidiasis Ju assessment Type 2 diabetes mellitus without complications assessment Vitamin B12 deficiency Blair-09-20 25 assessment Pain in left knee assessment Pain in right knee assessment Vitamin D deficiency Mental Status Date Cognitive Assessment Orientation - [place] ed to time, place, person, situation.
--- OUTSIDE RECORDS SUMMARY | 2025-03-16 16:14 | XMS_ITS | Encounter Summary ---
Author Organization Healthcare Address [address] [place] [address] Care Team Providers Care Measurement Superintendent Name Role Phone Mehdi Hogan MD Primary Care Provider [phone] Debra Wills APRN, DNP Unavailable + [phone] Encounter Details Date Type Department Care Team (Latest Contact Info) Description 09/07/2021 [facility] [address] [place] [address] Mehdi Hogan MD [address] [place] [address] Bulging of lumbar intervertebral disc [...] region documented in this encounter Care Teams Measurement Superintendent Relationship Specialty Start Date End Date Mehdi Hogan MD [address] [place] [address] PCP - General 11/17/22 Debra Wills APRN, ALTHEA [address] [place] [address] Nurse Practitioner Neurosurgery 11/17/22 documented as of this encounter
--- OUTSIDE RECORDS SUMMARY | 2025-03-16 16:14 | XMS_ITS | Clinical Summary ---
Author Organization [facility] Address [address], [address] [place] [address] Care Team Providers Care Cytogenetic Technologist Name Role Phone Unavailable Primary Care Provider Unavailabl e Allergies Active Allergy Reactions Criticality Noted Date Comments Lisinopril 03/28/2020 cough Medications losartan (COZAAR) 25 MG tablet Take 25 mg by mouth daily Active atorvastatin (LIPITOR) 10 MG tablet Take 20 mg by mouth daily Active metoprolol tartrate (LOPRESSOR) 25 MG tablet Take 12.5 mg by mouth 2 times daily Active aspirin 81 MG EC tablet Take 81 mg by mouth daily Active prasugrel (EFFIENT) 5 MG TABS Take 5 mg by mouth daily Active furosemide (LASIX) 20 MG tablet Take 20 mg by mouth daily Active ibuprofen (IBU) 800 MG tablet Take 1 tablet by mouth every 8 hours as needed for Pain 20 tablet 03/28/2020 Active Social History Tobacco Use Types Packs/Day Years Used Date Smoking Tobacco: Every Day Cigarettes Smokeless Tobacco: Never Alcohol Use Standard Drinks/Week Comments Not Currently 0 (1 standard drink = 0.6 oz pur e alcohol) Comments No Sex and Gender Information Value Date Recorded Sex Assigned at Not on file Legal Sex Female 12:29 PM EDT Gender Identity Not on file Sexual Orientation Not on file Last Filed Vital Signs Vital Sign Reading Time Taken Comments Blood Pressure 137/93 03/28/2020 2:30 PM EDT Pulse 83 03/28/2020 2:30 PM EDT Temperature 36.8 C (98.2 F) 03/28/2020 12:41 PM EDT Respiratory Rate 20 03/28/2020 12:41 PM EDT Oxygen Saturation 96% 03/28/2020 2:30 PM EDT Inhaled Oxygen Concentration - - Weight 72.6 kg (160 lb) 03/28/2020 12:41 PM EDT Height 162.6 cm (5' 4 ) 03/28/2020 12:41 PM EDT Body Mass Index 27.46 03/28/2020 12:41 PM EDT Plan of Treatment Not on file Insurance
--- OUTSIDE RECORDS SUMMARY | 2025-03-16 16:14 | XMS_ITS | Clinical Summary ---
Author Organization Healthcare Address [address] [place] [address] Care Team Providers Care Vascular Physician Name Role Phone Mehdi Hogan MD Primary Care Provider + [phone] Debra Wills APRN, DNP Unavailable [phone] Allergies Active Allergy Reactions Criticality Noted Date [...] 600 MG tablet 10/19/2022 Active HYDROcodone-acet aminophen ([place]) 10-325 MG tablet 10/19/2022 Active Lidoderm 5 [...] 2011 [facility]-Zoster Vaccines (1 of 2) 2011 [id number] Vaccine (3 - 2023- season) 2024 04/05/2021, [...] patient's age to complete this topic Insurance [facility] MEDICAID Care Teams Vascular Physician Relationship Specialty Start Date End Date Mehdi Hogan MD [address] [place] [address] PCP - General 11/17/22 Debra Wills, FURNACE HELPER, DNP [id number] [place] [address] Nurse Practitioner Neurosurgery 11/17/22
--- NOTE | 2025-03-16 16:30 | MR_ITS ---
FINAL REPORT TECHNIQUE: Multiplanar MR right knee without contrast CLINICAL HISTORY: Right knee pain pt states this is an eval for torn meniscus FINDINGS: Articular cartilage: Moderate to severe thinning within the medial compartment. Marrow signal: Minimal reactive subchondral sclerosis and edema involving the medial femoral condyle. A rounded lesion is seen with central calcification in the distal femur measuring up to 20 mm likely representing enchondroma. Joint fluid: Small joint effusion. Small Lomeli's cyst. There is a calcified joint body seen posteriorly. Best seen on sagittal image 14 of proton-density sequence near the root of the posterior horn of the medial meniscus measuring up to 9 mm on axial imaging. Menisci: Moderate, oblique tear of the posterior horn of the medial meniscus. Lateral meniscus intact. Ligaments: Edema surrounding the MCL consistent with grade 1 injury. Lateral collateral, cruciate and patellofemoral ligaments are intact. Tendons: Quadriceps and patellar tendon normal IMPRESSION: 1. Moderate-sized tear of the posterior of the medial meniscus. 2. Moderate degenerative changes with joint body. 3. Grade 1 MCL injury. Reviewed, Interpreted and Dictated by Mariola Joseph MD Transcribed by Diana De Jesus Authenticated and [facility]
== END 2025-03-16 23:59 | disposition home or self-care (01) ==
LOC: RAD 16:11
PROVIDERS: PCP Nurse Practitioner Family; Visit Provider Physician Assistant
DX: S83.241A Other tear of medial meniscus, current injury, right knee, initial encounter (principal); S83.411A Sprain of medial collateral ligament of right knee, initial encounter; M17.11 Unilateral primary osteoarthritis, right knee
CPT/HCPCS: 73721

== ENCOUNTER 2025-04-10 08:06 | Outpatient (CLI) | payer OTHER, SELFPAY ==
[2025-04-10 07:52] VITALS: BMI 25.9
== END 2025-04-10 23:59 | disposition home or self-care (01) ==
LOC: PREOP 08:06
PROVIDERS: PCP Nurse Practitioner Family; Visit Provider Orthopaedic Surgery
DX: Z01.810 Encounter for preprocedural cardiovascular examination (principal); Z01.811 Encounter for preprocedural respiratory examination; Z01.812 Encounter for preprocedural laboratory examination

== ENCOUNTER 2025-04-21 11:02 | Outpatient (CLI) | payer OTHER, SELFPAY ==
[2025-04-21 08:23] VITALS: BMI 25.9
--- OUTSIDE RECORDS SUMMARY | 2025-04-21 11:17 | XMS_ITS | Clinical Summary ---
Author Organization Healthcare Address [address] [place] [address] Care Team Providers Care Regional Geodetic Advisor Name Role Phone Mehdi Hogan MD Primary Care Provider + [phone] Debra Wills APRN, DNP Unavailable [phone] Allergies Active Allergy Reactions Criticality Noted Date [...] 600 MG tablet 10/19/2022 Active HYDROcodone-acet aminophen ([place]) 10-325 MG tablet 10/19/2022 Active Lidoderm 5 [...] [facility]-HIV Screening 1961 [facility]-Hepatitis C Screening 1961 [facility]-/Child/Adol SDOH Screenings 1961 [facility]- SDOH Screenings 1979 [facility]-Adult SDOH Screenings 1979 [facility]-Pap Smear 1982 [facility]-Cervical Cancer Screening 1991 [facility]-HPV/Cotest 1991 CT Colonography 2006 Colonoscopy 2006 FIT-DNA 2006 FIT 2006 FOBT 2006 Sigmoidoscopy 2006 [facility]-Colorectal Cancer Screening 2006 [facility]-Breast Cancer Screening 2011 [facility]-Pneumococcal Vaccine: 50 + Years (1 of 1 - PCV) 2011 [facility]-Zoster Vaccines (1 of 2) 2011 [id number] Vaccine (3 - 2023- season) 2024 04/05/2021, [...] patient's age to complete this topic Insurance [facility] MEDICAID Care Teams Regional Geodetic Advisor Relationship Specialty Start Date End Date Mehdi Hogan MD [address] [place] [address] PCP - General 11/17/22 Debra Wills, ELECTRICIAN TECHNICIAN, DNP [id number] [place] [address] Nurse Practitioner Neurosurgery 11/17/22
--- OUTSIDE RECORDS SUMMARY | 2025-04-21 11:17 | XMS_ITS | Encounter Summary ---
Author Organization Healthcare Address [address] [place] [address] Care Team Providers Care Sexer Name Role Phone Mehdi Hogan MD Primary Care Provider [phone] Debra Wills APRN, DNP Unavailable + [phone] Encounter Details Date Type Department Care Team (Latest Contact Info) Description 09/07/2021 [facility] [address] [place] [address] Mehdi Hogan MD [address] [place] [address] Bulging of lumbar intervertebral disc [...] region documented in this encounter Care Teams Sexer Relationship Specialty Start Date End Date Mehdi Hogan MD [address] [place] [address] PCP - General 11/17/22 Debra Wills APRN, ALTHEA [address] [place] [address] Nurse Practitioner Neurosurgery 11/17/22 documented as of this encounter
--- OUTSIDE RECORDS SUMMARY | 2025-04-21 11:17 | XMS_ITS | Clinical Summary ---
Author Organization [facility] Address [address], [address] [place] [address] Care Team Providers Care Briar Cutter Name Role Phone Unavailable Primary Care Provider [...]
[2025-04-21 11:54] LABS: Hematocrit 43.8 % (37.0-47.0); Hemoglobin 14.3 g/dL (12.2-16.2); Immature Granulocytes % 0.5 %; Mean Corpuscular HGB Conc 32.6 g/dL (31.8-35.4); Mean Corpuscular Hemoglobin 29.3 pg (27.0-31.2); Mean Corpuscular Volume 89.8 fl (81-99); Nucleated Red Blood Cells % 0 %; Platelet Count 261 K/mm3 (142-424); Red Blood Count 4.88 M/mm3 (4.20-5.40); Red Cell Distribution Width-SD 42.0 fL; White Blood Count 11.4 K/mm3 (4.8-10.8)
[2025-04-21 12:07] LABS: Chloride 108 mmol/L (98-107)
[2025-04-21 12:08] LABS: Potassium 3.9 mmoL/L (3.5-5.1); Sodium 142 mmol/L (136-145)
[2025-04-21 12:11] LABS: Anion Gap 13.9 mEq/L (5-15); Blood Urea Nitrogen 16 mg/dl (7-17); Calcium 9.4 mg/dl (8.4-10.2); Carbon Dioxide 24 mmol/L (22.0-30.0); Creatinine Clearance Estimated 62 mL/min (50-200); Creatinine,Serum 0.70 mg/dl (0.52-1.04); Estimated Glomerular Filt Rate 85 ml/min (>60); GFR (African American) 102 ML/MIN (>60); Glucose 147 mg/dl (74-100)
== END 2025-04-21 23:59 | disposition home or self-care (01) ==
LOC: PREOP 11:03
PROVIDERS: Nurse Anesthetist, Certified Registered; PCP Nurse Practitioner Family; Visit Provider Orthopaedic Surgery
DX: Z01.812 Encounter for preprocedural laboratory examination (principal)
CPT/HCPCS: 80048; 85025

== ENCOUNTER 2025-04-28 07:49 | Day surgery (SDC) | payer OTHER, SELFPAY ==
--- NOTE | 2025-04-10 08:36 | SUR.PREOP ---
Pt wishes to reschedule surgery once Effient status is addressed. Dr. Cunningham's office notified, they are to follow up with pt.
--- NOTE | 2025-04-21 13:39 | SUR.PREOP ---
Instructed pt to hold ozempic until after procedure and clear liquids 24 hrs prior to procedure per anesthesia guidelines.
[2025-04-21 13:41] VITALS: BMI 25.9
[2025-04-28] VITALS (11 sets, daily range): BP systolic 116–138; BP diastolic 70–91; PULSE 68–86; RESP 12–18; TEMP 36.3–38; O2SAT 92–97
[2025-04-28] MEDS: LACTATED RINGERS 1000ML 1,000 ML 100 ML IV (08:05)
[2025-04-28 08:17] LABS: POC Glucose,Bedside 95 gm/dL (70-110)
--- NOTE | 2025-04-28 08:44 | P.PNANES_ITS ---
[facility] Disclaimer: The information contained in this section may have been updated after the patient was seen, as this information can be updated by other users. Medical History Preop examination CHF (congestive heart failure) Diabetes HTN (hypertension) CAD (coronary artery disease) Long-term use of high-risk medication Tobacco dependence syndrome Chest pain Surgical History History of bladder surgery History of coronary artery stent placement History of tubal ligation History of hemorrhoidectomy Family History Other Family history of cancer Family history of diabetes mellitus No significant family history Social History Smoking Status: Current every day smoker tobacco type: cigarettes packs per day: 1 alcohol intake: never substance use type: marijuana, crack/cocaine and opiates current occupational status: retired Travel in the last 8 weeks?: None household members: other housing: house current occupational exposures/hazards: Yes special michaela needs: No agree to transfusion: No do you feel safe at home: Yes victim of physical abuse: No victim of emotional abuse: No victim of sexual abuse: No would you like helpful sources: No Have you lived/traveled outside [place] in past 30 days?: No Contact w/someone who lives/traveled outside US past 30 days?: No Exposure to someone with infectious disease in past 14 days?: No Do you have a fever (greater than 100.4 F or 38 C)?: No Have you tested positive for COVID-19?: No Exposed to someone with COVID-19 in past 14 days?: No Do you have a sore throat?: No Do you have a cough?: No Do you have any weakness?: No Do you have any diarrhea?: No Are you experiencing any unusual bleeding?: No Do you have any muscle aches/pain?: No Do you have any abdominal pain?: No Are you experiencing loss of taste or smell?: No [facility] [facility] Anesthesia Checklist Patient Identification Patient Identification: Arm Band Structural Data Admitted From: Home Planned Operative Procedure/s: Right Knee Arthroscopy Consent for Planned Operative Procedure(s) Verified: Yes Verified Documents: Surgical Consent and History and Physical NPO Status Verified Time NPO: 00:00 Additional verifications Anesthesia Reactions: No Hx Blood Transfusions: No Blood Transfusion Reaction: No Airway Assessment Mallampati Score:: Class II C-Spine Mobility Assessed: Yes TMJ Mobility Assessed: Yes Dentition: Good Dentition Neurological Assessment Level of Consciousness: Awake, Alert and Appropriate Anesthesia Plan Anesthesia Risk discussed: Yes Anesthesia Plan: Verified ASA Class: III Anesthesia Type: General
[2025-04-28] MEDS: RINGERS SOLUTION,LACTATED 6,000 ML 200 ML IR (09:37)
--- NOTE | 2025-04-28 10:06 | P.PNANES_ITS ---
[facility] Anesthesia Record Part I Anesthesia Record I Intake, IV Amount: 800 Hydration: Adequate Estimated blood loss (mL): 30 Urine output (mL): 0 Blood Products used (#): none Blood Pressure: 116/70 SaO2: 92 Pulse Rate: 75 Airway Patency: Patent Respiratory Rate: 18 Temperature: 97.7 F Patient is:: Drowsy and Stable Stable to PACU at:: 10:00
[2025-04-28 10:11] LABS: POC Glucose,Bedside 127 gm/dL (70-110)
--- NOTE | 2025-04-28 10:11 | P.OP_ITS ---
Date of procedure: 04/28/25 Pre-op Diagnosis:: Right knee medial meniscus tear Post-op Diagnosis:: Right knee medial meniscus tear right knee isolated grade IV chondromalacia anterior aspect medial femoral condyle Procedure performed:: Right knee arthroscopy with partial medial meniscectomy Surgeon:: Georges Cunningham DO Critical Care Transport Nurse(s):: Amado WALTON [employer]ING SUPERVISOR:: Edwar Ya Anesthesia: GETA Estimated blood loss (mL): 0 Operative findings:: See dictation as above. There was a large macerated tear of the posterior horn of the medial meniscus along with early osteophyte formation medial joint line as well as a large amount of synovitis and rubbing of the anterior aspect of the medial femoral condyle with an isolated grade IV chondromalacia. Operative note:: Patient identified preoperatively. Right knee marked with yes and my initials. Transferred operative suite. Placed upon operating bed. General anesthesia was administered. Airway secured. Right lower extremity prepped and draped within the knee hardy. Once prepped and draped final operative timeout performed to identify proper patient procedure and extremity. Everyone involved in the case agreed. There is no counter indications to beginning. Did receive preoperative antibiotics. Marking pen was used to marifer the bony landmarks of the knee and standard portal sites. Esmarch was used to exsanguinate the extremity pneumatic tourniquet inflated to 300 mmHg. Skin knife is used to incise standard anterior lateral portal. Blunt with trocar was placed in the patellofemoral joint and exchanged with a camera. I swept directly into the medial joint line. Within the medial joint line I made the anterior medial portal with the help of an 18-gauge spinal needle for visualization. This then exchanged with the probe. There is a large macerated complex tear of the posterior horn and body of the medial meniscus. Using a combination of straight biter and sucker shaver partial medial meniscectomy was taken back to stable rim. Attention was then brought into the intercondylar notch the ACL was seen and intact attention was brought to the lateral joint line the lateral cartilage was intact lateral meniscus intact. Swept back into the gutters within the medial gutter there was a large amount of synovitis present and also upon flexion of the knee this area of synovitis was rubbing on a full-thickness kissing type lesion of the anterior aspect of the medial femoral condyle. There was an isolated small area of grade IV chondromalacia but no loose javier cartilage. The amount of synovitis around this area and large thickening scarring was debrided with a sucker shaver to relieve the impingement on the anterior aspect of the medial femoral condyle. No further pathology was seen the camera was removed the joint was drained. Local anesthesia infiltrated the portal sites. Skin closed with nylon stitch sterile dressing placed from toe to thigh patient waken anesthesia taken recovery in stable condition. Condition: stable Disposition: PACU Complications:: None apparent
[2025-04-28] MEDS: MORPHINE 2MG/ML SYRINGE 2 MG IV (10:37)
--- NOTE | 2025-04-29 08:28 | P.PNANES_ITS ---
[facility] Anesthesia Record Part II Anesthesia Record Part II Discharge Time: 10:40 Destination: Surgical Day Care (OP Surgery) PACU nurse assessment reviewed?: Yes Patient Condition:: Good Anesthesia Complications:: None Swallowing reflex intact?: Yes Airway Patency: Patent Cyanosis?: No Blood Pressure: 132/74 SaO2: 95 Respiratory Rate: 18 Pulse Rate: 84 Temperature: 97.7 F Mental Status: Alert & Oriented Pain level:: 7 Nausea and/or vomitting:: None Intake, IV Amount: 0 Hydration: Adequate
[2025-04-29 08:29] VITALS: BP 132/74; PULSE 84; RESP 18; TEMP 36.5; O2SAT 95
== END 2025-04-28 11:25 | disposition home or self-care (01) ==
PROVIDERS: PCP Nurse Practitioner Family; Visit Provider Orthopaedic Surgery
PROC: (CPT 29870; principal; 2025-04-28 09:15)
DX: S83.231A Complex tear of medial meniscus, current injury, right knee, initial encounter (principal); S83.411A Sprain of medial collateral ligament of right knee, initial encounter; M94.261 Chondromalacia, right knee; M65.98 Unspecified synovitis and tenosynovitis, other site; X58.XXXA Exposure to other specified factors, initial encounter; F17.210 Nicotine dependence, cigarettes, uncomplicated; E11.9 Type 2 diabetes mellitus without complications; I11.0 Hypertensive heart disease with heart failure; I50.9 Heart failure, unspecified; Z88.8 Allergy status to other drugs, medicaments and biological substances; Z79.899 Other long term (current) drug therapy; Z79.85 Long-term (current) use of injectable non-insulin antidiabetic drugs; Z79.02 Long term (current) use of antithrombotics/antiplatelets; Z79.84 Long term (current) use of oral hypoglycemic drugs
CPT/HCPCS: 29881; 82962; 96374; J0665; J0690; J1100; J2003; J2250; J2270; J2405; J2704; J3010; J7120

== ENCOUNTER 2025-08-18 10:29 | Outpatient (CLI) | payer OTHER, SELFPAY ==
--- NOTE | 2025-08-18 10:31 | XR_ITS ---
FINAL REPORT CLINICAL HISTORY: Right ankle pain COMPARISON: 11/16/2022 FINDINGS: Three views show no evidence of acute displaced fracture or dislocation of the visualized bony architecture. The joint spaces appear normal. IMPRESSION: Unremarkable exam. Reviewed, Interpreted and Dictated by Mariola Joseph MD Transcribed by Perla Powell Authenticated and [facility]
--- OUTSIDE RECORDS SUMMARY | 2025-08-18 10:34 | XMS_ITS | Encounter Summary ---
Author Organization Healthcare Address [address] [place] [address] Care Team Providers Care Shearer Helper Name Role Phone Mehdi Hogan MD Primary Care Provider [phone] Debra Wills APRN, DNP Unavailable + [phone] Encounter Details Date Type Department Care Team (Latest Contact Info) Description 09/07/2021 [facility] [address] [place] [address] Mehdi Hogan MD [address] [place] [address] Bulging of lumbar intervertebral disc [...] region documented in this encounter Care Teams Shearer Helper Relationship Specialty Start Date End Date Mehdi Hogan MD [address] [place] [address] PCP - General 11/17/22 Debra Wills APRN, ALTHEA [address] [place] [address] Nurse Practitioner Neurosurgery 11/17/22 documented as of this encounter
--- OUTSIDE RECORDS SUMMARY | 2025-08-18 10:34 | XMS_ITS | Clinical Summary ---
Author Organization [facility] Address [address], [address] [place] [address] Care Team Providers Care Mechanical Inspector Name Role Phone Unavailable Primary Care Provider [...]
--- OUTSIDE RECORDS SUMMARY | 2025-08-18 10:34 | XMS_ITS | Clinical Summary ---
Author Organization Healthcare Address [address] [place] [address] Care Team Providers Care Parachute Line Tier Name Role Phone Mehdi Hogan MD Primary Care Provider + [phone] Debra Wills APRN, DNP Unavailable [phone] Allergies Active Allergy Reactions Criticality Noted Date [...] 600 MG tablet 10/19/2022 Active HYDROcodone-acet aminophen ([place]) 10-325 MG tablet 10/19/2022 Active Lidoderm 5 [...] 2011 [facility]-Zoster Vaccines (1 of 2) 2011 [facility]OO-STWIC-01 Vaccine (3 - 2024- season) 2025 04/05/2021, 03/08/2021 [facility]-Influenza Vaccine (#1) 2025 [facility]-DTaP,Tdap,and Td Vaccine s (2 - Td or Tdap) 12/24/2026 12/24/2016 [facility]-RSV Vaccine: 60+ Years o r (1 - 1-dose 75+ series) 2036 [facility]-Obesity Intervention Completed 11/17/2022 HPV Vaccines (No Doses Required) Completed [facility]-HIB Vaccines Aged Out No longer e [...] patient's age to complete this topic Insurance [facility] MEDICAID Care Teams Parachute Line Tier Relationship Specialty Start Date End Date Mehdi Hogan MD [address] [place] [id number] PCP - General 11/17/22 Debra Wills, RESEARCH EPIDEMIOLOGIST, DNP [address] [place] [id number] Nurse Practitioner Neurosurgery 11/17/22
== END 2025-08-18 23:59 ==
LOC: RAD 10:29
PROVIDERS: PCP Nurse Practitioner Family; Visit Provider Physician Assistant
DX: M25.571 Pain in right ankle and joints of right foot (principal)
CPT/HCPCS: 73610